=== PATIENT | male | born 1980 | race Hispanic/Latino ===

== ENCOUNTER 2022-09-09 06:56 | Emergency (ER) | payer BC ==
--- OUTSIDE RECORDS SUMMARY | 2022-09-09 07:01 | XMS REPORT | Continuity of Care Document ---
:[address] [facility] t Address [address] [place] [address] Care Team Providers Name Role Phone RUSSEL BAY Primary Care Physician Unavailable KAPIL WALKER Attending Clinician Unavailable PAVITHRA Attending Clinician Unavailable ANDER CAREY Attending Clinician Unavailable Skyla Mills Attending Clinician [phone] RSUSEL BAY Attending Clinician Unavailable KAPIL WALKER Attending Clinician Unavailable PAVITHRA Admitting Clinician Unavailable ANDER CAREY Admitting Clinician Unavailable RUSSEL BAY Admitting Clinician Unavailable KAPIL WALKER Admitting Clinician Unavailable Payers Payer Name Policy Type Policy Number Effective Date Expiration Date S s[place] [id number] 2022 [place] - [place] DIRECT 00:00:00 8 B [id number] GROUP \\T\\ PENSION [id number] 1989 ADMINISTRATORS 00:00:00 2 C [id number] Problems This patient has no known problems. Allergies, Adverse Reactions, Alerts Allergy Allergy Status Severity Reaction(s) Onset Inactive Treating Comm ents Source Name Type Date Date Clinician No known Miscella Active U Not [facility] No known Miscella Active U Not 2021-0 [facility] Spec[facility] 1-14 [facility] All[facility]ie Allergy 08:29: l s 06 ([facility]) No known Miscella Active U Not 202-0 [facility] Specified 10-24 [facility] Allergie Allergy 08:29: l s 06 ([facility]) No known Miscella Active U Not 2021-0 [facility] Specified 10-24 [facility] Allergie Allergy 08:29: l s 06 ([facility]) No known Miscella Active U Not 202-0 [facility] Specified 10-24 [facility] Allergie Allergy 08:29: l s 06 ([facility]) No known Miscella Active U Not 2020-0 [facility] Specified 10-24 [facility] Allergie Allergy 08:29: l s 06 ([facility]) No known Miscella Active U Not 2020-0 [facility] Specified 10-24 [facility] Allergie Allergy 08:29: l s 06 ([facility]) No known Miscella Active U Not 2020-0 [facility] drug [facility]ous Specified 10-24 [facility] Allergie Allergy 08:29: l s 06 ([facility]) No known Miscella Active U Not 2020-0 [facility] Specified 10-24 [facility] Allergie Allergy 08:29: l s 06 ([facility]) No known Miscella Active U Not 2021-0 [facility] drug ne[facility] Specified 10-24 [facility] Allergie Allergy 08:29: l s 06 ([facility]) No known Miscella Active U Not 2020-0 [facility] drug neous Specified 10-24 [facility]osp[facility] Allergie Allergy 08:29: l s 06 ([facility]) No known Miscella Active U Not 2021-0 Baptis [facility] drug neous Specified 10-24 [facility]osp[facility] Allergie Allergy 08:29: l s 06 ([facility]) No known Miscella Active U Not 2021-0 [facility] drug neous Specified 10-24 [facility]osp[facility] Allergie Allergy 08:29: l s 06 ([facility]) No known Miscella Active U Not 2021-0 [facility] drug neous Specified 10-24 [facility]osp[facility] Allergie Allergy 08:29: l s 06 ([facility]) No known Miscella Active U Not [facility] Specified 10-24 [facility] Allergie Allergy 08:29: l s 06 ([facility]) No known Miscella Active U Not [facility] drug neous Specified 10-24 [facility]ospita Allergie Allergy 08:29: l s 06 ([facility]) No known Miscella Active U Not [facility] drug neous Specified 10-24 [facility]ospita Allergie Allergy 08:29: l s 06 ([facility]) No known Miscella Active U Not [facility] drug [facility]ous Specified 10-24 [facility]ospita Allergie Allergy 08:29: l s 06 ([facility]) No known Miscella Active U Not [facility] Specified 10-24 [facility] Allergie Allergy 08:29: l s 06 ([facility]) No known Miscella Active U Not [facility] drug [facility] Specified 10-24 [facility]osp[facility] Allergie Allergy 08:29: l s 06 ([facility]) No known Miscella Active U Not [facility] Specified 07-06 [facility] Allergie Allergy 17:38: l s 26 ([facility]) Social History Smoking Status Start Date Stop Date Source Current Every Day Smoker [facility] Light Tobacco Smoker [facility] Medications Ordered Filled Start Stop Current Ordering Indication Dosage Frequency Signature Comments Components Source Medication Medication Date Date Medication? Clinician (SIG) Name Name padmaja giang No triamcinol [facility] ne ne 4-21 one Medical acetonide acetonide 14:57: acetonide Group 40 mg/mL 40 mg/mL 40 40 mg/mL suspension suspension suspension for for for injectionTa injectionTa injectionT ke 2 mL by ke 2 mL by clary 2 mL injection injection by route. route. injection route. Kenalog 40 Kenalog 40 No Kenalog 40 [place] mg/mL mg/mL 2-10 mg/mL Medical suspension suspension 15:50: suspension Group for for 35 for injectionTa injectionTa injectionT ke 1 mL by ke 1 mL by clary 1 mL injection injection by route. route. injection route. neomycin neomycin No neomycin Jr robbins 3.5 3.5 3.5 Medical mg/g-polymy mg/g-polymy mg/g-polym Group wilmer B wilmer B yxin B 10,000 10,000 10,000 unit/g-dexa unit/g-dexa unit/g-dex meth 0.1 % meth 0.1 % ameth 0.1 eye oint eye oint % eye oint APPLY SMALL APPLY SMALL APPLY AMOUNT TO AMOUNT TO SMALL THE EYELID THE EYELID AMOUNT TO THREE TIMES THREE TIMES THE EYELID DAILY DAILY THREE TIMES DAILY pantoprazol pantoprazol No pantoprazo [facility] e 20 mg e 20 mg le 20 mg Medic al tablet,iqra tablet,iqra tablet,del Group yed release yed release ayed TAKE 1 TAKE 1 release TABLET BY TABLET BY TAKE 1 MOUTH EVERY MOUTH EVERY TABLET BY DAY DAY MOUTH EVERY DAY pantoprazol pantoprazol No pantoprazo [facility] e 40 mg e 40 mg le 40 mg Medic al tablet,iqra tablet,iqra tablet,del Group yed release yed release ayed TAKE 1 TAKE 1 release TABLET BY TABLET BY TAKE 1 MOUTH TWICE MOUTH TWICE TABLET BY DAILY DAILY MOUTH TWICE DAILY prednisolon prednisolon No prednisolo [facility] e acetate 1 e acetate 1 ne acetate Medical % eye % eye 1 % eye Group drops,suspe drops,suspe drops,susp nsion nsion ension INSTILL 1 INSTILL 1 INSTILL 1 DROP INTO DROP INTO DROP INTO BOTH EYES BOTH EYES BOTH EYES FOUR TIMES FOUR TIMES FOUR TIMES A DAY FOR 7 A DAY FOR 7 A DAY FOR DAYS DAYS 7 DAYS triamcinolo triamcinolo No 2mL triamcinol Yenny ne ne one Medical acetonide acetonide acetonide Group 40 mg/mL 40 mg/mL 40 mg/mL suspension suspension suspension for for for injection injection injection Take 2 mL Take 2 mL Take 2 mL by by by injection injection injection route. route. route. azithromyci azithromyci No azithromyc [place] n 250 mg n 250 mg in 250 mg Me dical tablet tablet tablet Group ID NOW ID NOW No ID NOW [place] COVID-19 COVID-19 COVID-19 Med ical Test Kit Test Kit Test Kit [place] up TEST TEST TEST DIRECTED DIRECTED DIRECTED Kenalog 40 Kenalog 40 No 1mL Kenalog 40 [facility] mg/mL mg/mL mg/mL Medical suspension suspension suspension Group for for for injection injection injection Take 1 mL Take 1 mL Take 1 mL by by by injection injection injection route. route. route. methylpredn methylpredn No methylpred [place] isolone 4 isolone 4 nisolone 4 Medical mg tablets mg tablets mg tablets Group in a dose in a dose in a dose pack FOLLOW pack FOLLOW pack PACKAGE PACKAGE FOLLOW DIRECTIONS DIRECTIONS PACKAGE DIRECTIONS Mobic 15 mg Mobic 15 mg No 1 Q1D Mobic 15 [place] tablet Take tablet Take mg tablet Medical 1 tablet 1 tablet Take 1 Group every day every day tablet by oral by oral every day route. route. by oral route. pantoprazol pantoprazol No pantoprazo [place] e 40 mg e 40 mg le 40 mg Medic al tablet,iqra tablet,iqra tablet,del Group yed release yed release ayed TAKE 1 TAKE 1 release TABLET BY TABLET BY TAKE 1 MOUTH TWICE MOUTH TWICE TABLET BY DAILY DAILY MOUTH TWICE DAILY azithromyci azithromyci No azithromyc [facility] n 250 mg n 250 mg in 250 mg Me dical tablet tablet tablet Group ID NOW ID NOW No ID NOW [place] COVID-19 COVID-19 COVID-19 Med ical Test Kit Test Kit Test Kit [place] up TEST TEST TEST DIRECTED DIRECTED DIRECTED latanoprost latanoprost No latanopros [place] 0.005 % eye 0.005 % eye t 0.005 % Medical drops drops eye drops Group INSTILL 1 INSTILL 1 INSTILL 1 DROP IN DROP IN DROP IN BOTH EYES BOTH EYES BOTH EYES EVERY NIGHT EVERY NIGHT EVERY NIGHT meloxicam meloxicam No meloxicam [facility] 15 mg 15 mg 15 mg Medical tablet TAKE tablet TAKE tablet Group 1 TABLET BY 1 TABLET BY TAKE 1 MOUTH EVERY MOUTH EVERY TABLET BY DAY DAY MOUTH EVERY DAY methylpredn methylpredn No methylpred [place] isolone 4 isolone 4 nisolone 4 Medical mg tablets mg tablets mg tablets Group in a dose in a dose in a dose pack FOLLOW pack FOLLOW pack PACKAGE PACKAGE FOLLOW DIRECTIONS DIRECTIONS PACKAGE DIRECTIONS neomycin neomycin No neomycin Jr robbins 3.5 3.5 3.5 Medical mg/g-polymy mg/g-polymy mg/g-polym Group wilmer B wilmer B yxin B 10,000 10,000 10,000 unit/g-dexa unit/g-dexa unit/g-dex meth 0.1 % meth 0.1 % ameth 0.1 eye oint eye oint % eye oint APPLY SMALL APPLY SMALL APPLY AMOUNT TO AMOUNT TO SMALL THE EYELID THE EYELID AMOUNT TO THREE TIMES THREE TIMES THE EYELID DAILY DAILY THREE TIMES DAILY pantoprazol pantoprazol No pantoprazo [place] e 20 mg e 20 mg le 20 mg Medic al tablet,iqra tablet,iqra tablet,del Group yed release yed release ayed TAKE 1 TAKE 1 release TABLET BY TABLET BY TAKE 1 MOUTH EVERY MOUTH EVERY TABLET BY DAY DAY MOUTH EVERY DAY pantoprazol pantoprazol No pantoprazo [place] e 40 mg e 40 mg le 40 mg Medic al tablet,iqra tablet,iqra tablet,del Group yed release yed release ayed TAKE 1 TAKE 1 release TABLET BY TABLET BY TAKE 1 MOUTH TWICE MOUTH TWICE TABLET BY DAILY DAILY MOUTH TWICE DAILY triamcinolo triamcinolo No 2mL triamcinol [place] ne ne one Medical acetonide acetonide acetonide Group 40 mg/mL 40 mg/mL 40 mg/mL suspension suspension suspension for for for injection injection injection Take 2 mL Take 2 mL Take 2 mL by by by injection injection injection route. route. route. dextroamphe dextroamphe No dextroamph [place] tamine-amph tamine-amph etamine-am Medical etamine 10 etamine 10 phetamine Group mg tablet mg tablet 10 mg TAKE 1 TAKE 1 tablet TABLET BY TABLET BY TAKE 1 MOUTH EVERY MOUTH EVERY TABLET BY MORNING MORNING MOUTH EVERY MORNING dextroamphe dextroamphe No dextroamph [facility] tamine-amph tamine-amph etamine-am Medical etamine 20 etamine 20 phetamine Group mg tablet mg tablet 20 mg TAKE 1 TAKE 1 tablet TABLET BY TABLET BY TAKE 1 MOUTH EVERY MOUTH EVERY TABLET BY DAY DAY MOUTH EVERY DAY latanoprost latanoprost No latanopros [place] 0.005 % eye 0.005 % eye t 0.005 % Medical drops drops eye drops Group INSTILL 1 INSTILL 1 INSTILL 1 DROP IN DROP IN DROP IN BOTH EYES BOTH EYES BOTH EYES EVERY NIGHT EVERY NIGHT EVERY NIGHT meloxicam meloxicam No meloxicam [place] 15 mg 15 mg 15 mg Medical tablet TAKE tablet TAKE tablet Group 1 TABLET BY 1 TABLET BY TAKE 1 MOUTH EVERY MOUTH EVERY TABLET BY DAY DAY MOUTH EVERY DAY neomycin neomycin No neomycin Jr robbins 3.5 3.5 3.5 Medical mg/g-polymy mg/g-polymy mg/g-polym Group wilmer B wilmer B yxin B 10,000 10,000 10,000 unit/g-dexa unit/g-dexa unit/g-dex meth 0.1 % meth 0.1 % ameth 0.1 eye oint eye oint % eye oint APPLY SMALL APPLY SMALL APPLY AMOUNT TO AMOUNT TO SMALL THE EYELID THE EYELID AMOUNT TO THREE TIMES THREE TIMES THE EYELID DAILY DAILY THREE TIMES DAILY pantoprazol pantoprazol No pantoprazo [facility] e 20 mg e 20 mg le 20 mg Medic al tablet,iqra tablet,iqra tablet,del Group yed release yed release ayed TAKE 1 TAKE 1 release TABLET BY TABLET BY TAKE 1 MOUTH EVERY MOUTH EVERY TABLET BY DAY DAY MOUTH EVERY DAY pantoprazol pantoprazol No pantoprazo [facility] e 40 mg e 40 mg le 40 mg Medic al tablet,iqra tablet,iqra tablet,del Group yed release yed release ayed TAKE 1 TAKE 1 release TABLET BY TABLET BY TAKE 1 MOUTH TWICE MOUTH TWICE TABLET BY DAILY DAILY MOUTH TWICE DAILY triamcinolo triamcinolo No 2mL triamcinol [place] ne ne one Medical acetonide acetonide acetonide Group 40 mg/mL 40 mg/mL 40 mg/mL suspension suspension suspension for for for injection injection injection Take 2 mL Take 2 mL Take 2 mL by by by injection injection injection route. route. route. alprazolam alprazolam No alprazolam [facility] 0.5 mg 0.5 mg 0.5 mg Medical tablet tablet tablet Group INSTRUCTION INSTRUCTION INSTRUCTIO S WILL BE S WILL BE NS WILL BE GIVEN AT GIVEN AT GIVEN AT OFFICE OFFICE OFFICE dextroamphe dextroamphe No dextroamph [place] tamine-amph tamine-amph etamine-am Medical etamine 10 etamine 10 phetamine Group mg tablet mg tablet 10 mg TAKE 1 TAKE 1 tablet TABLET BY TABLET BY TAKE 1 MOUTH EVERY MOUTH EVERY TABLET BY MORNING MORNING MOUTH EVERY MORNING dextroamphe dextroamphe No dextroamph [facility] tamine-amph tamine-amph etamine-am Medical etamine 20 etamine 20 phetamine Group mg tablet mg tablet 20 mg TAKE 1 TAKE 1 tablet TABLET BY TABLET BY TAKE 1 MOUTH EVERY MOUTH EVERY TABLET BY DAY DAY MOUTH EVERY DAY gatifloxaci gatifloxaci No gatifloxac Y[facility] n 0.5 % eye n 0.5 % eye in 0.5 % Medical drops drops eye drops Group INSTILL 1 INSTILL 1 INSTILL 1 DROP INTO DROP INTO DROP INTO BOTH EYES BOTH EYES BOTH EYES FOUR TIMES FOUR TIMES FOUR TIMES A DAY FOR 7 A DAY FOR 7 A DAY FOR DAYS DAYS 7 DAYS latanoprost latanoprost No latanopros [place] 0.005 % eye 0.005 % eye t 0.005 % Medical drops drops eye drops Group INSTILL 1 INSTILL 1 INSTILL 1 DROP IN DROP IN DROP IN BOTH EYES BOTH EYES BOTH EYES EVERY NIGHT EVERY NIGHT EVERY NIGHT meloxicam meloxicam No meloxicam [place] 15 mg 15 mg 15 mg Medical tablet TAKE tablet TAKE tablet Group 1 TABLET BY 1 TABLET BY TAKE 1 MOUTH EVERY MOUTH EVERY TABLET BY DAY DAY MOUTH EVERY DAY pantoprazol pantoprazol No pantoprazo [facility] as e as le as st directed directed directed Dallin as [facility] tracey Vital Signs Vital Name Observation Time Observation Value Comments Source BP Diastolic 2022-08-26 84 mm[Hg] [facility] 00:00:00 Height 2022-08-26 70 [in_i] [facility] 00:00:00 BMI (Body Mass 2022-08-26 40.2 kg/m2 [place] [facility] Index) 00:00:00 BP Systolic 2022-08-26 136 mm[Hg] [facility] 00:00:00 Body Weight 2022-08-26 280 [lb_av] [facility] 00:00:00 BP Diastolic 2022-05-07 126 mm[Hg] [facility] 00:00:00 Height 2022-05-07 70 [in_i] [facility] 00:00:00 BP Systolic 2022-05-07 182 mm[Hg] [facility] 00:00:00 BP Diastolic 2022-01-29 83 mm[Hg] [facility] 00:00:00 Height 2022-01-29 70 [in_i] [facility] 00:00:00 BMI (Body Mass 2022-01-29 38.3 kg/m2 [facility] Index) 00:00:00 BP Systolic 2022-01-29 128 mm[Hg] [facility] 00:00:00 Body Weight 2022-01-29 267 [lb_av] [facility] 00:00:00 BP Diastolic 2021-11-20 83 mm[Hg] [facility] 00:00:00 Height 2021-11-20 70 [in_i] [facility] 00:00:00 BMI (Body Mass 2021-11-20 38.3 kg/m2 [facility] Index) 00:00:00 BP Systolic 2021-11-20 143 mm[Hg] [facility] 00:00:00 Body Weight 2021-11-20 267 [lb_av] [facility] 00:00:00 BP Diastolic 2018-12-08 85 mm[Hg] [facility] 00:00:00 [facility] Height 2018-12-08 70 [in_i] [facility] 00:00:00 [facility] BMI (Body Mass 2018-12-08 42 kg/m2 [facility] as Index) 00:00:00 [facility] BP Systolic 2018-12-08 141 mm[Hg] [facility] 00:00:00 [facility] Body Weight 2018-12-08 293 [lb_av] [facility] 00:00:00 [facility] Procedures Procedure Date / Time Performing Clinician Source Performed XR, shoulder, 2 or 2021-11-11 00:00:00 [facility] more view XR, elbow, 3 or more 2021-11-11 00:00:00 [facility] view US, abdomen, 2018-12-08 00:00:00 [facility] [place] [facility] Other [facility] Plan of Care Planned Activity Planned Date Details Comments Source Instructions [facility] Encounters Start End Encounter Admission Attending Care Care Encounter Source Date/Time Date/Time Type Type Clinicians Facility Department ID 2021-08-01 Outpatient JONATHAN CASTILLO [id number] [facility] 17:17:[id number] [place] [address] 2019-12-07 Inpatient JONATHAN PHILLIPS [id number] [facility] 11:16:[address] 2022-08-27 2022-08-27 Out[place] [facility] [place] [id number] [facility] 00:00:00 00:00:00 TATIANA [id number] [facility] 2022-08-26 2022-08-26 Outpatient NETO [facility] [place] [id number] [facility] 00:00:00 00:00:00 TATIANA [id number] Medica l Group 2022-08-26 2022-08-26 Skyla [place]OL[place]AN [place] [facility] [place] [id number] Yenny 00:00:00 00:00:00 MD Gene: Silvestre caldwell [address] and [address], [facility] [address] , Ph. 2022-06-26 2022-06-26 Outpatient ROMAN CATHOLIC [id number] 01:00:00 01:00:00 [facility] [id number] [facility] [id number] 2022-06-25 2022-06-25 Outpatient 3 TRINITY CAREY [facility] [id number] Sikhism 20:00:00 20:00:00 ANDER sunshine ([facility]) 2022-05-26 2022-05-26 Outpatient BANKS_KRIST [facility] [place] [id number] [facility] 00:00:00 00:00:00 TATIANA [id number] Medica l Group 2022-05-10 2022-05-10 Outpatient BANKS_KRIST [facility] [place] 540 [id number] Yenny 00:00:00 00:00:00 TATIANA [id number] Medica l Group 2022-05-07 2022-05-07 Outpatient BANKS_KRIST [facility] [place] 540 [id number] Yenny 00:00:00 00:00:00 TATIANA [address] Medica l Group 2022-05-07 2022-05-07 [facility] [id number] 00:00:00 00:00:00 Skyla Musa [id number] 1023-07-28 2022-05-07 Skyla [place] [facility] [place] Yenny 00:00:00 00:00:00 MD Gene: Silvestre caldwell [address], a[address] and [address], [facility], [facility] [address] , Ph. 2022-04-28 2022-04-28 Outpatient BANKS_KRIST [facility] 540 [facility]enny 02:51:00 02:51:00 TATIANA [id number] Medica l Group 2022-04-21 2022-04-21 Outpatient ROMAN CATHOLIC [id number] 01:00:00 01:00:00 [facility] JONATHAN [id number] [facility] [id number] 2022-04-20 2022-04-20 Outpatient 3 TRINITY CAREY [facility] [id number] Sikhism 20:00:00 20:00:00 [facility]ER [facility] ([facility]) 2022-03-31 2022-03-31 Outpatient BANKS_KRIST [facility] 540 Yenny 07:11:00 07:11:00 TATIANA [facility] 2022-01-30 2022-01-30 Outpatient BANKS_KRIST [facility] 540 Yenny 10:38:00 10:38:00 [facility] 2022-01-29 2022-01-29 Outpatient BANKS[facility]KRIST [facility] 540 Yenny 03:14:00 03:14:00 [facility] 2022-01-29 2022-01-29 Outpatient SUSI Mills [facility] [place] [id number] 00:00:00 00:00:00 Skyla Musa [id number] 2022-01-29 2022-01-29 Skyla Musa [facility] [place] [facility] [place] 00:00:00 00:00:00 MD Gene: [facility] ica [address]/VITALIY/[address], a[address] and [address], [facility] [place], [place]A Pate [address] , Ph. 2022-01-17 2022-01-17 Outpatient BANKS_KRIST [facility] 540 Yenny 01:42:00 01:42:00 T[facility]NA [facility] 2021-11-27 2021-11-27 Outpatient BANKS[facility]KRIST [facility] 540 Yenny 11:39:00 11:39:00 [facility]NA [facility] 2021-11-25 2021-11-25 Outpatient BANKS_KRIST [facility] [place] 540 [place] 03:11:00 03:11:00 [facility]NA [facility] 2021-11-21 2021-11-21 Outpatient [facility] 540 [place] 09:10:00 09:10:00 [facility] 2021-11-20 2021-11-20 Outpatient [facility] 540 Yenny 04:49:00 04:49:00 [facility] 2021-11-20 2021-11-20 Outpatient Gene [facility] [place] [id number] 00:00:00 00:00:00 Skyla Musa [id number] 2021-11-20 2021-11-20 Skyla Musa [facility] [place] - [facility] 00:00:00 00:00:00 MD Gene: [facility] ical [address] [place] - [place] [address] [address], a[address] and [address], [facility] [address] , Ph. 2021-11-11 2021-11-11 Outpatient BANKS_KRIST [facility] [place] 10:15:00 10:15:00 [facility]NA [facility] 2021-10-16 2021-10-16 Outpatient 3 TRINITY BAY OPI [id number] [facility] 11:29:13 11:29:13 [facility] 2019-12-07 2019-12-07 Outpatient JONATHAN WALKER [id number] [facility] 12:41:00 12:41:[address] 2019-11-24 2019-11-24 Outpatient JONATHAN PHILLIPS [id number] [facility] 10:05:00 11:25:[address] 2019-10-19 2019-10-19 Outpatient JONATHAN PHILLIPS [id number] [facility] 06:06:00 07:53:00 [facility] 12 [facility] 2019-09-21 2019-09-21 Outpatient JONATHAN PHILLIPS [id number] [facility] 06:30:00 08:20:00 [facility] 2018-12-08 2018-12-08 Ruben DAMIAN [place] - [id number] [place] 00:00:00 00:00:00 [facility] [address] [facility], DO: [address] [facility], OFFICE gy [address], [facility] [place], [place] [address] , Ph. Results Test Description Test Time Test Comments Results Result Comments Source WHOLE BLOOD GLUCOSE 2019-07-06 17:15:00 Test Item Value Reference Range Interpretation Comme nts WHOLE BLOOD GLUCOSE (test 148 MG/DL 70-99 Fasting glucose normal <100 MG/DL- code = POC GLU) [facility] recommendation* * [id number] 16:52:00 Test Item Value Reference Range Interpretation Comments GLUCOSE (test code = URGLU) 250 MG/DL NEG-100 BILIRUBN (test code = URBILI) NEGATIVE NEGATIVE KETONE (test code = URKET) NEGATIVE MG/DL NEGATIVE BLOOD (test code = URBLD) NEGATIVE UR PH (test code = URPH) 6.0 5.0-7.5 PROTEIN (test code = URPRO) NEGATIVE MG/DL NEGATIVE NITRITES (test code = URNIT) NEGATIVE NEGATIVE UROBILINGEN (test code = 1.0 EU/DL 0.2-1.0 URURO) LEUKOCYT (test code = URLEU) NEGATIVE NEGATIVE UA COLOR (test code = UA YELLOW YELLOW COLOR) CLARITY (test code = CLARITY) CLEAR CLEAR SP GRAV (test code = URSPGRAV) 1.020 1.000-1.025 UAMICRO (test code = UAMICRO) NO [id number] 13:04:00 Test Item Value Reference Range Interpretation Comments WBC (test code = 5.5 K/UL 3.5-10.9 WBC) RBC (test code = 5.13 M/UL 4.3-5.7 RBC) HGB (test code = 15.5 G/DL 13.0-17.9 HGB) HCT (test code = 45.2 % 38-52 HCT) MCV (test code = 88.1 FL 80-98 MCV) MCH (test code = 30.2 PG 28-32 MCH) MCHC (test code = 34.3 G/DL 32.5-36.5 MCHC) RDW (test code = 12.1 % 11.5-14.5 RDW) PLT (test code = 238 K/UL 150-450 PLT) MPV (test code = 10.0 FL 7.4-10.4 MPV) MANDIFF (test code = NO MANDIFF) SCAN (test code = NO SCAN) NEUT% (test code = 41.0 % 40-75 NEUT%) LYMPH% (test code = 46.5 % 24-44 H LYMPH%) MONO% (test code = 7.4 % 0-13 MONO%) EOS% (test code = 4.3 % 0-4 H EOS%) BASO % (test code = 0.4 % 0-2 BASO%) IG% (test code = 0.4 % 0-1 IG% = Metam yelocytes, IG%) Myelocytes, and Promyelocytes. (Immature neutr ophils not including " bands".) > 3% IG indic ates risk of sepsis NRBC% (test code = 0 /100 WBC NRBC%) ABS NEUT (test code 2.3 K/UL 1.2-7.2 = NEUT) HEPATITIS C ANTIBODY [id number] 12:06:00 Test Item Value Reference Range Interpretation Comments SCRN HCV (test code NEGATIVE NEGATIVE Hepatiti s C Antibody test = SCRN HCV) is for screenin g purposes only. All react geovanna will be confirmed by additional test ing. ER SCREEN FOR HIV 12:06:00 Test Item Value Reference Range Interpretation Comments HIV 1/2 AB (test NONREACTIVE NONREACTIVE This test i s used for code = SCRN HIV) SCREENING p urposes only. All reactive re sults are prelimenary and confirmation re sults will follow. PROBRAIN NATRIURETIC [id number] 10:56:00 Test Item Value Reference Range Interpretation Comments NT-PROBNP (test code 37 pg/mL Exclusi on for heart = PROBNP) failure for pat ients of all ages is 300 pg/mL. Inclusion for h eart failure for pat ients age <50 is 450 pg/m L; for patients age 50 -75 is 900 pg/mL; for reg ents age >75 is 1800 pg/ mL. [id number] 10:56:00 Test Item Value Reference Range Interpretation Comments %CKMB (test code = %MB) 0.5 % CKMB (test code = CKMB) 0.5 NG/ML 0.22-2.4 CK (test code = CK) 96 U/L 55-170 CKINTERP (test code = NEGATIVE Negative CKINTERP) PROTHROMBIN TIME WITH [id number] 10:56:00 Test Item Value Reference Range Interpretation Comments PROTHROMBIN TIME 12.6 SECONDS 12.0-14.6 INR Usual R killian = 2 (test code = PT) to 3 for pr evention of deep vein thrombosis (DVT ) INR (test code = INR) 0.9 [id number] 10:56:00 Test Item Value Reference Range Interpretation Comments PTT (test code = 26.9 SECONDS 24.4-36.3 HEPARIN THE RAPEUTIC PTT) RANGE 57-92 SEC ONDS TROPONIN [id number] 10:26:00 Test Item Value Reference Range Interpretation Comments TROPER (test code = 0.00 ng/ml 0.0-0.08 INTE RPRETIVE TROPER) DATA A POC T ROPONIN OF </= 0.08 NG/ ML IS CONSIDERED NEGA TIVE CHEST 1 VIEW [id number] 10:23:[address] [id number] IMAGING REPORTPatient Name: FERMIN [place] of Service: [id number]: [id number] Sex: M Order #: [id number] [facility] 1980 [facility] Number: [id number] Record Number: [id number] Hospital Number: [id number] Physician: Joselyn ESCOTOing Physician: Aleena ESCOTO.10:10 AMHistory: Chest pain.Technique: Single AP chest projection.Findings: Single chest projection demonstrates normal heart size and clearlungs. No infiltrates or abnormalities are depicted. The osseous structuresappear intact.Impression:No acute-appearing cardiopulmonary abnormalities.Electronically Signed By: Omer Copeland M.D., 02/24/2018 10:21 AMLegally authenticated by MIN Fisher 2018-02-24 10:21:05FOOT 3 VIEWS 2018-02-24 10:23:[address] [id number] IMAGING REPORTPatient Name: FERMIN [place] of Service: [id number]: 38 Sex: M Order #: [id number] Room: ERB: 1980 X-Ray Number: [id number] Record Number: [id number] Hospital Number: [id number] Physician: AMOS ESCOTOOrdering Physician: Aureliano ESCOTO foot.History: Foot pain.Technique: 3 views of the right foot were reviewed.Findings:There is no fracture, dislocation or bony malalignment. The visualizedankle joint appears intact. The soft tissues appear normal.Impression:No specific acute appearing right foot abnormalities.Electronically Signed By: Omer Copeland M.D., 02/24/2018 10:21 AMLegally authenticated by MIN Fisher 2018-02-24 10:21:27WHOLE BLOOD [id number] 09:40:00 Test Item Value Reference Range Interpretation Comments WHOLE BLOOD GLUCOSE 82 mg/dL 70-99 Fastin g glucose (test code = POC GLU) normal <100 MG/DL- [employer] recommendation* *
[2022-09-09] MEDS ORDERED: KETOROLAC 30 MG/ML INJ ONE (07:42)
[2022-09-09] MEDS ORDERED: ONDANSETRON 4 MG/2 ML VIAL ONE (07:42)
[2022-09-09] MEDS ORDERED: ONDANSETRON 4 MG (ODT) TAB ONE (07:45)
--- NOTE | 2022-09-09 08:45 | RAD REPORT ---
EXAM DESCRIPTION: Kelly Single View09/09/2022 8:36 am CLINICAL HISTORY: Chest pain COMPARISON: none FINDINGS: The lungs appear clear of acute infiltrate. The heart is normal size IMPRESSION: No acute abnormalities displayed
--- NOTE | 2022-09-09 08:54 | ER ---
Nurse's Notes [facility] Name: Harvey Lewis Age: 42 yrs Sex: Male : 1980 Arrival Date: 09/09/2022 Time: 07:02 Bed 14 Private MD: Diagnosis: Acute viral syndrome;Flu-like symptoms Presentation: 09/09 07:18 Chief complaint: Patient states: N/V/D, body aches, fever for 2 days. Had to leave work ll1 this morning. Coronavirus screen: Vaccine status: Patient reports receiving the 2nd dose of the covid vaccine. Client denies travel out of the [place] in the last 14 days. diarrhea, fatigue, fever, headache, muscle pain, nausea, vomiting. Client presents with at least one sign or symptom that may indicate coronavirus-19. Standard/surgical mask placed on the client. Ebola Screen: Patient denies travel to an Ebola-affected area in the 21 days before illness onset. Initial Sepsis Screen: Does the patient meet any 2 criteria? HR > 90 bpm. Does the patient have a suspected source of infection? Yes: Acute abdominal pain. Risk Assessment: Do you want to hurt yourself or someone else? Patient reports no desire to harm self or others. Onset of symptoms was September 08, 2022. 07:18 Method Of Arrival: Ambulatory 1 07:18 Acuity: NGUYỄN 3 ll1 Triage Assessment: 07:20 General: Appears uncomfortable, ill, Behavior is cooperative, appropriate for age. ll1 General: fever 101 at home. Pain: Complains of pain in body Pain currently is 10 out of 10 on a pain scale. Quality of pain is described as aching, Pain began 1 day ago. GI: Abdomen is round Reports cramping, diarrhea, nausea, vomiting. Musculoskeletal: Reports pain in body aches. Historical: - Allergies: 07:18 No Known Allergies; ll1 - PMHx: 07:18 None; ll1 - PSHx: 07:18 gastric sleeve; Cholecystectomy; ll1 - Immunization history:: Client reports receiving the 2nd dose of the Covid vaccine. - Social history:: Smoking status: Patient reports the use of cigarette tobacco products, denies chronic smoking, but will smoke occasionally. Screenin:55 Abuse screen: Denies threats or abuse. Denies injuries from another. Nutritional db screening: No deficits noted. Tuberculosis screening: No symptoms or risk factors identified. Fall Risk None identified. No fall in past 12 months (0 pts). No secondary diagnosis (0 pts). No IV (0 pts). Ambulatory Aid- None/Bed Rest/Nurse Assist (0 pts). Gait- Normal/Bed Rest/Wheelchair (0 pts) Mental Status- Oriented to own ability (0 pts). Total Austin Fall Scale indicates No Risk (0-24 pts). Assessment: 07:40 Reassessment: Patient appears in no apparent distress at this time. Patient is alert, db oriented x 3, equal unlabored respirations, skin warm/dry/pink. nausea and body aches with fever started yesterday. General: Appears in no apparent distress. Behavior is calm, cooperative, appropriate for age. Pain: Complains of pain in all over body. Neuro: Level of Consciousness is awake, alert, obeys commands, Oriented to person, place, time, situation, Appropriate for age. Cardiovascular: No deficits noted. Respiratory: Reports cough that is congestion. GI: Reports nausea, Patient currently denies diarrhea, vomiting. GI: Abdomen is flat, non-distended, Abd is soft and non tender X 4 quads. Vital Signs: 07:18 BP 154 / 94; Pulse 103; Resp 18; Temp 99.2; Pulse Ox 99% ; Weight 127.01 kg; Height 5 ll1 ft. 10 in. (177.80 cm); Pain 10/10; 09:00 BP 127 / 69; Pulse 101; Resp 18; Temp 99.9(O); Pulse Ox 99% on R/A; db 07:18 Body Mass Index 40.18 (127.01 kg, 177.80 cm) ll1 ED Course: 07:02 Patient arrived in ED. bp1 07:08 Denise Cedeño MD is Attending Physician. sd2 07:18 Arm band placed on Patient placed in an exam room, on a stretcher. ll1 07:20 Triage completed. ll1 07:28 Frances Hatch, MILIND is Primary Nurse. db 08:25 EKG done, by ED staff, reviewed by Denise Cedeño MD. em1 08:38 XRAY Chest (1 view) In Process Unspecified. EDMS 09:00 Bed in low position. Side rails up X 1. Pulse ox on. NIBP on. Warm blanket given. db 09:00 No provider procedures requiring assistance completed. Patient did not have IV access db during this emergency room visit. Administered Medications: 07:45 Drug: Ondansetron 8 mg Route: PO; db 09:27 Follow up: Response: No adverse reaction db 07:53 Drug: Ketorolac 60 mg Route: IM; Site: right deltoid; db 09:27 Follow up: Response: No adverse reaction db Medication: 09:00 VIS not applicable for this client. db Outcome: 08:53 Discharge ordered by . kuldip 09:00 Discharged to home ambulatory. db 09:00 Condition: stable 09:00 Discharge instructions given to patient, significant other, Instructed on discharge instructions, follow up and referral plans. Demonstrated understanding of instructions, follow-up care, Prescriptions given X 1. 09:28 Patient left the ED. db Signatures: Dispatcher [employer] EDMS Kirill Smith em1 Katie Lopez, MILIND RN ll1 Lucie Lucas Stephanie, MD MD sd2 Frances Hatch, RN RN db
--- NOTE | 2022-09-09 08:54 | EDPHYS ---
Physician Documentation [facility] Name: Harvey Lewis Age: 42 yrs Sex: Male : 1980 Arrival Date: 09/09/2022 Time: 07:02 Bed 14 Private MD: ED Physician Denise Cedeño HPI: 09/09 07:23 This 42 yrs old Male presents to ER via Ambulatory with complaints of Fever, sd2 Nausea, Diarrhea. 07:23 42 yo M presents with CC of fever, nausea and diarrhea ongoing since yesterday. Reports sd2 taking Advil at home with some relief. Tested for COVID and flu yesterday at clinic and was negative. Denies any known sick contacts. States burning sensation in chest at times but denies cough. Has a history of heartburn he is on medication for. Denies prior cardiac history. . Historical: - Allergies: 07:18 No Known Allergies; ll1 - PMHx: 07:18 None; ll1 - PSHx: 07:18 gastric sleeve; Cholecystectomy; ll1 - Immunization history:: Client reports receiving the 2nd dose of the Covid vaccine. - Social history:: Smoking status: Patient reports the use of cigarette tobacco products, denies chronic smoking, but will smoke occasionally. ROS: 07:23 Eyes: Negative for injury, pain, redness, and discharge. sd2 07:23 Respiratory: Negative for shortness of breath, cough, wheezing. 07:23 MS/Extremity: Negative for injury and deformity, Skin: Negative for injury, rash, and discoloration, Neuro: Negative for headache, numbness and tingling. 07:23 Constitutional: Positive for body aches, chills, fever, Negative for weight loss. 07:23 Cardiovascular: Positive for chest pain, Negative for orthopnea, palpitations. 07:23 Abdomen/GI: Positive for nausea, diarrhea, Negative for abdominal pain, vomiting. Exam: 07:23 Constitutional: This is a well developed, well nourished patient who is awake, alert, sd2 and in no acute distress. Head/Face: Normocephalic, atraumatic. Eyes: EOMI, normal conjunctiva bilaterally Chest/axilla: Normal chest wall appearance and motion. Nontender with no deformity. Cardiovascular: Regular rate and rhythm with a normal S1 and S2. No gallops, murmurs, or rubs. 2+ distal pulses. Respiratory: Lungs have equal breath sounds bilaterally, clear to auscultation and percussion. No rales, rhonchi or wheezes noted. No increased work of breathing, no retractions or nasal flaring. Abdomen/GI: Soft, non-tender, with normal bowel sounds. No guarding or rebound. No evidence of tenderness throughout. Skin: Warm, dry with normal turgor. Normal color with no rashes, no lesions, and no evidence of cellulitis. MS/ Extremity: Pulses equal, no cyanosis. Neurovascular intact. Full, normal range of motion. Ambulatory without difficulty. Psych: Awake, alert, with orientation to person, place and time. Behavior, mood, and affect are within normal limits. 08:04 ECG was reviewed by the Attending Physician. Sinus tachycardia, rate 105, no STEMI sd2 criteria Vital Signs: 07:18 BP 154 / 94; Pulse 103; Resp 18; Temp 99.2; Pulse Ox 99% ; Weight 127.01 kg; Height 5 ll1 ft. 10 in. (177.80 cm); Pain 10/10; 09:00 BP 127 / 69; Pulse 101; Resp 18; Temp 99.9(O); Pulse Ox 99% on R/A; db 07:18 Body Mass Index 40.18 (127.01 kg, 177.80 cm) ll1 MDM: 07:16 Patient medically screened. sd2 07:23 Differential diagnosis: Differential diagnosis includes but is not limited to: Viral sd2 URI, acute otitis media, acute otitis externa, pneumonia, UTI, COVID, flu, herpangina among others. Data reviewed: vital signs, nurses notes. 08:52 Counseling: I had a detailed discussion with the patient and/or guardian regarding: the sd2 historical points, exam findings, and any diagnostic results supporting the discharge/admit diagnosis, lab results, radiology results, the need for outpatient follow up, to return to the emergency department if symptoms worsen or persist or if there are any questions or concerns that arise at home. Medical screen evaluation completed. EMTALA emergency medical condition absent. ED course: Labs and imaging reviewed. Viral testing negative. CXR with no acute process. EKG with no ischemic changes. Pt feeling improved after treatment. Advised of continued supportive care for home and need for outpatient follow up. Pt verbalizes understanding of discharge plan and strict return precautions. . 09/09 07:23 Order name: SARS-COV-2 RT PCR; Complete Time: 08:48 sd2 09/09 07:23 Order name: Influenza Screen (a \T\ B); Complete Time: 08:29 sd2 09/09 07:23 Order name: XRAY Chest (1 view); Complete Time: 08:48 sd2 09/09 07:23 Order name: EKG - Nurse/Tech; Complete Time: 08:25 sd2 Administered Medications: 07:45 Drug: Ondansetron 8 mg Route: PO; db 09:27 Follow up: Response: No adverse reaction db 07:53 Drug: Ketorolac 60 mg Route: IM; Site: right deltoid; db 09:27 Follow up: Response: No adverse reaction db Disposition Summary: 09/09/22 08:53 Discharge Ordered Location: Home sd2 Problem: new sd2 Symptoms: have improved sd2 Condition: Stable sd2 Diagnosis - Acute viral syndrome sd2 - Flu-like symptoms sd2 Followup: sd2 - With: Private Physician - When: 2 - 3 days - Reason: Recheck today's complaints, Continuance of care, Re-evaluation by your physician Discharge Instructions: - Discharge Summary Sheet sd2 - Viral Illness, Adult sd2 Forms: - Medication Reconciliation Form sd2 - Thank You Letter sd2 - Antibiotic Education sd2 - Prescription Opioid Use sd2 - Work release form db Prescriptions: - ondansetron 8 mg Oral tablet,disintegrating - take 1 tablet by ORAL route every 8 hours As needed; 15 tablet; Refills: 0, sd2 Product Selection Permitted Signatures: Dispatcher [employer] Katie Alcantara, RN RN 1 Denise Cedeño MD MD sd2 Frances Hatch, RN RN db
[2022-09-09 09:32] VITALS: O2SAT 99
[2022-09-09 09:33] VITALS: BP 127/69; TEMP 99.9
--- NOTE | 2022-09-10 13:24 | EKG ---
Test Date: 2022-09-09 Test Time: 08:00:47 Clerk Travel Reservations: YARI MEASUREMENT RESULTS: Intervals: Rate: 105 LA: 148 QRSD: 88 QT: 322 QTc: 425 [place]: P: 1 LA: 148 QRS: -31 T: 5 INTERPRETIVE STATEMENTS: Sinus tachycardia Left axis deviation Pulmonary disease pattern Abnormal ECG No previous ECG available for comparison Electronically Signed On 09-10-22 13:22:44 HEAD BANQUET WAITER/WAITRESS by Marc Flor
== END 2022-09-09 09:28 | disposition home or self-care (01) ==
LOC: ER 06:56
DX: B34.9 Viral infection, unspecified (principal); F17.210 Nicotine dependence, cigarettes, uncomplicated; Z20.822 Contact with and (suspected) exposure to COVID-19
CPT/HCPCS: 93005; 87804 ×2; 71045; 96372; 99284; U0003; Q0162; J2405

== ENCOUNTER 2023-01-01 09:09 | Emergency (ER) | payer BC ==
--- OUTSIDE RECORDS SUMMARY | 2023-01-01 09:15 | XMS REPORT | Continuity of Care Document ---
:[address] [facility] t Address [address] [place] [address] Care Team Providers Name Role Phone RUSSEL BAY Primary Care Physician Unavailable KAPIL WALKER Attending Clinician Unavailable PAVITHRA Attending Clinician Unavailable Skyla Piper Attending Clinician Unavailab ANDER Lepe Attending Clinician Unavailable Skyla Mills Attending Clinician [phone] RUSSEL BAY Attending Clinician Unavailable KAPIL WALKER Attending Clinician Unavailable PAVITHRA Admitting Clinician Unavailable ANDER CAREY Admitting Clinician Unavailable RUSSEL BAY Admitting Clinician Unavailable KAPIL WALKER Admitting Clinician Unavailable Payers Payer Name Policy Type Policy Number Effective Date Expiration Date S sancho [place] [id number] 2022 [place] DIRECT 00:00:00 8 B [id number] GROUP \\T\\ PENSION [id number] 1989 ADMINISTRATORS 00:00:00 2 C [id number] Problems This patient has no known problems. Allergies, Adverse Reactions, Alerts Allergy Allergy Status Severity Reaction(s) Onset Inactive Treating Comm ents Source Name Type Date Date Clinician No Known DA Active U 2021-10 [facility] 2-21 Allergie 00:00: s 00 No Known DA Active U 2021-10 [facility] Drug 2- Allergie 00:00: s 00 No known Miscella Active U Not 2020- [facility] 08:29: l s 06 ([facility]) No known Miscella Active U Not 2020-0 [facility] Specified 10-24 [facility] Allergie Allergy 08:29: l s 06 ([facility]) No known Miscella Active U Not 2020-0 [facility] Specified 10-24 [facility] Allergie Allergy 08:29: l s 06 ([facility]) No known Miscella Active U Not 2020- [facility] Specified 10-24 [facility] Allergie Allergy 08:29: l s 06 ([facility]) No known Miscella Active U Not 2020-0 [facility] Specified 10-24 [facility] Allergie Allergy 08:29: l s 06 ([facility]) No known Miscella Active U Not 2020-0 [facility] Specified 10-24 [facility] Allergie Allergy 08:29: l s 06 ([facility]) No known Miscella Active U Not 2020-0 [facility] Specified 10-24 [facility] Allergie Allergy 08:29: l s 06 ([facility]) No known Miscella Active U Not 2020-0 [facility] Specified 10-24 [facility] Allergie Allergy 08:29: l s 06 ([facility]) No known Miscella Active U Not 2020-0 [facility] Specified 10-24 [facility] Allergie Allergy 08:29: l s 06 ([facility]) No known Miscella Active U Not 2020-0 [facility] Specified 10-24 [facility] Allergie Allergy 08:29: l s 06 ([facility]) No known Miscella Active U Not 2020-0 [facility] Specified 10-24 [facility] Allergie Allergy 08:29: l s 06 ([facility]) No known Miscella Active U Not 202-0 [facility] Specified 10-24 [facility] Allergie Allergy 08:29: l s 06 ([facility]) No known Miscella Active U Not [facility] Specified 10-24 [facility] Allergie Allergy 08:29: l s 06 ([facility]) No known Miscella Active U Not [facility] Specified 10-24 [facility] Allergie Allergy 08:29: l s 06 ([facility]) No known Miscella Active U Not [facility] Specified 10-24 [facility]osp[facility] Allergie Allergy 08:29: l s 06 ([facility]) No known Miscella Active U Not [facility] Specified 10-24 [facility] Allergie Allergy 08:29: l s 06 ([facility]) No known Miscella Active U Not [facility] Specified 10-24 [facility] Allergie Allergy 08:29: l s 06 ([facility]) No known Miscella Active U Not [facility] Specified 10-24 [facility] Allergie Allergy 08:29: l s 06 ([facility]) No known Miscella Active U Not [facility] Specified 10-24 [facility] Allergie Allergy 08:29: l s 06 ([facility]) No known Miscella Active U Not [facility] drug neous Specified 10-24 [facility] Allergie Allergy 08:29: l s 06 ([facility]) No known Miscella Active U Not [facility] Specified 07-06 [facility]osp[facility] Allergie Allergy 17:38: l s 26 ([facility]) Social History Smoking Status Start Date Stop Date Source Current Every Day Smoker [facility] Light Tobacco Smoker [facility] Medications Ordered Filled Start Stop Current Ordering Indication Dosage Frequency Signature Comments Components Source Medication Medication Date Date Medication? Clinician (SIG) Name Name triamcinolo triamcinolo No triamcinol [facility] co ne 4-21 one Medical acetonide acetonide 14:57: acetonide Group 40 mg/mL 40 mg/mL 40 40 mg/mL suspension suspension suspension for for for injectionTa injectionTa injectionT ke 2 mL by ke 2 mL by clary 2 mL injection injection by route. route. injection route. Kenalog 40 Kenalog 40 No Kenalog 40 [facility] mg/mL mg/mL 2-10 mg/mL Medical suspension suspension [...] THREE TIMES DAILY pantoprazol pantoprazol No pantoprazo [facility] e 20 mg e 20 mg le [...] MOUTH TWICE DAILY prednisolon prednisolon No prednisolo [facility] e acetate 1 e acetate 1 ne [...] OFFICE OFFICE OFFICE dextroamphe dextroamphe No dextroamph [facility] tamine-amph tamine-amph etamine-am Medical etamine 10 etamine [...] TABLET BY DAY DAY MOUTH EVERY DAY ergocalcife ergocalcife No ergocalcif [facility] rol rol marisol [facility] (vitamin (vitamin (vitamin Wraren up D2) 1,250 D2) 1,250 D2) 1,250 mcg (50,000 mcg (50,000 mcg unit) unit) (50,000 capsule capsule unit) TAKE 1 TAKE 1 capsule CAPSULE BY CAPSULE BY TAKE 1 MOUTH EVERY MOUTH EVERY CAPSULE BY WEEK WEEK MOUTH EVERY WEEK gatifloxaci gatifloxaci No gatifloxac [facility] n 0.5 % eye n 0.5 % eye in 0.5 % Medical drops drops eye drops Group INSTILL 1 INSTILL 1 INSTILL 1 DROP INTO DROP INTO DROP INTO BOTH EYES BOTH EYES BOTH EYES FOUR TIMES FOUR TIMES FOUR TIMES A DAY FOR 7 A DAY FOR 7 A DAY FOR DAYS DAYS 7 DAYS hydrocodone hydrocodone No hydrocodon [facility] 7.5 7.5 e 7.5 Medical mg-acetamin mg-acetamin mg-acetami Group ophen 325 ophen 325 nophen 325 mg tablet mg tablet mg tablet TAKE 1 TAKE 1 TAKE 1 TABLET BY TABLET BY TABLET BY MOUTH EVERY MOUTH EVERY MOUTH 6 HOURS 6 HOURS EVERY 6 HOURS latanoprost latanoprost No latanopros [facility] 0.005 % eye 0.005 % eye t [...] THE EYELID DAILY DAILY THREE TIMES DAILY ondansetron ondansetron No ondansetro [facility] 8 mg 8 mg n 8 mg Medical disintegrat disintegrat disintegra Group ing tablet ing tablet ting DISSOLVE DISSOLVE tablet ONE TABLET ONE TABLET DISSOLVE BY MOUTH BY MOUTH ONE TABLET EVERY 8 EVERY 8 BY MOUTH HOURS HOURS EVERY 8 NEEDED NEEDED HOURS NAUSEA NAUSEA NEEDED NAUSEA oseltamivir oseltamivir No oseltamivi [facility] 75 mg 75 mg r 75 mg Medical capsule capsule capsule Group TAKE 1 TAKE 1 TAKE 1 CAPSULE BY CAPSULE BY CAPSULE BY MOUTH TWICE MOUTH TWICE MOUTH DAILY DAILY TWICE DAILY pantoprazol pantoprazol No pantoprazo [facility] e 20 mg e 20 mg le [...] MOUTH TWICE DAILY prednisolon prednisolon No prednisolo [facility] e acetate 1 e acetate 1 ne [...] route. route. route. alprazolam alprazolam No alprazolam [facility] 0.5 mg 0.5 mg 0.5 mg Medical tablet tablet tablet Group INSTRUCTION INSTRUCTION INSTRUCTIO S WILL BE S WILL BE NS WILL BE GIVEN AT GIVEN AT GIVEN AT OFFICE OFFICE OFFICE dextroamphe dextroamphe No dextroamph [facility] tamine-amph tamine-amph etamine-am Medical etamine 10 etamine [...] TABLET BY DAY DAY MOUTH EVERY DAY ergocalcife ergocalcife No ergocalcif [facility] (vitamin (vitamin (vitamin [place] up D2) 1,250 D2) 1,250 D2) 1,250 mcg (50,000 mcg (50,000 mcg unit) unit) (50,000 capsule capsule unit) TAKE 1 TAKE 1 capsule CAPSULE BY CAPSULE BY TAKE 1 MOUTH EVERY MOUTH EVERY CAPSULE BY WEEK WEEK MOUTH EVERY WEEK gatifloxaci gatifloxaci No gatifloxac [facility] n 0.5 % eye n 0.5 % eye in 0.5 % Medical drops drops eye drops Group INSTILL 1 INSTILL 1 INSTILL 1 DROP INTO DROP INTO DROP INTO BOTH EYES BOTH EYES BOTH EYES FOUR TIMES FOUR TIMES FOUR TIMES A DAY FOR 7 A DAY FOR 7 A DAY FOR DAYS DAYS 7 DAYS hydrocodone hydrocodone No hydrocodon [facility] 7.5 7.5 e 7.5 Medical mg-acetamin mg-acetamin mg-acetami Group ophen 325 ophen 325 nophen 325 mg tablet mg tablet mg tablet TAKE 1 TAKE 1 TAKE 1 TABLET BY TABLET BY TABLET BY MOUTH EVERY MOUTH EVERY MOUTH 6 HOURS 6 HOURS EVERY 6 HOURS latanoprost latanoprost No latanopros [facility] 0.005 % eye 0.005 % eye t [...] THE EYELID DAILY DAILY THREE TIMES DAILY ondansetron ondansetron No ondansetro [facility] 8 mg 8 mg n 8 mg Medical disintegrat disintegrat disintegra Group ing tablet ing tablet ting DISSOLVE DISSOLVE tablet ONE TABLET ONE TABLET DISSOLVE BY MOUTH BY MOUTH ONE TABLET EVERY 8 EVERY 8 BY MOUTH HOURS HOURS EVERY 8 NEEDED NEEDED HOURS NAUSEA NAUSEA NEEDED NAUSEA oseltamivir oseltamivir No oseltamivi [facility] 75 mg 75 mg r 75 mg Medical capsule capsule capsule Group TAKE 1 TAKE 1 TAKE 1 CAPSULE BY CAPSULE BY CAPSULE BY MOUTH TWICE MOUTH TWICE MOUTH DAILY DAILY TWICE DAILY pantoprazol pantoprazol No pantoprazo [facility] e 20 mg e 20 mg le 20 mg Medic al tablet,iqra tablet,iqra tablet,del Group yed release yed release ayed TAKE 1 TAKE 1 release TABLET BY TABLET BY TAKE 1 MOUTH EVERY MOUTH EVERY TABLET BY DAY DAY MOUTH EVERY DAY pantoprazol pantoprazol No pantoprazo [facility] e 40 mg e 40 mg le [...] route. route. route. alprazolam alprazolam No alprazolam [facility] 0.5 mg 0.5 mg 0.5 mg Medical tablet tablet tablet Group INSTRUCTION INSTRUCTION INSTRUCTIO S WILL BE S WILL BE NS WILL BE GIVEN AT GIVEN AT GIVEN AT OFFICE OFFICE OFFICE dextroamphe dextroamphe No dextroamph [facility] tamine-amph tamine-amph etamine-am Medical etamine 10 etamine [...] TABLET BY DAY DAY MOUTH EVERY DAY ergocalcife ergocalcife No ergocalcif [facility] (vitamin (vitamin (vitamin [place] up D2) 1,250 D2) 1,250 D2) 1,250 mcg (50,000 mcg (50,000 mcg unit) unit) (50,000 capsule capsule unit) TAKE 1 TAKE 1 capsule CAPSULE BY CAPSULE BY TAKE 1 MOUTH EVERY MOUTH EVERY CAPSULE BY WEEK WEEK MOUTH EVERY WEEK gatifloxaci gatifloxaci No gatifloxac [facility] n 0.5 % eye n 0.5 % eye in 0.5 % Medical drops drops eye drops Group INSTILL 1 INSTILL 1 INSTILL 1 DROP INTO DROP INTO DROP INTO BOTH EYES BOTH EYES BOTH EYES FOUR TIMES FOUR TIMES FOUR TIMES A DAY FOR 7 A DAY FOR 7 A DAY FOR DAYS DAYS 7 DAYS hydrocodone hydrocodone No hydrocodon [facility] 7.5 7.5 e 7.5 Medical mg-acetamin mg-acetamin mg-acetami Group ophen 325 ophen 325 nophen 325 mg tablet mg tablet mg tablet TAKE 1 TAKE 1 TAKE 1 TABLET BY TABLET BY TABLET BY MOUTH EVERY MOUTH EVERY MOUTH 6 HOURS 6 HOURS EVERY 6 HOURS latanoprost latanoprost No latanopros [facility] 0.005 % eye 0.005 % eye t [...] THE EYELID DAILY DAILY THREE TIMES DAILY ondansetron ondansetron No ondansetro [facility] 8 mg 8 mg n 8 mg Medical disintegrat disintegrat disintegra Group ing tablet ing tablet ting DISSOLVE DISSOLVE tablet ONE TABLET ONE TABLET DISSOLVE BY MOUTH BY MOUTH ONE TABLET EVERY 8 EVERY 8 BY MOUTH HOURS HOURS EVERY 8 NEEDED NEEDED HOURS NAUSEA NAUSEA NEEDED NAUSEA oseltamivir oseltamivir No oseltamivi [facility] 75 mg 75 mg r 75 mg Medical capsule capsule capsule Group TAKE 1 TAKE 1 TAKE 1 CAPSULE BY CAPSULE BY CAPSULE BY MOUTH TWICE MOUTH TWICE MOUTH DAILY DAILY TWICE DAILY pantoprazol pantoprazol No pantoprazo [facility] e 20 mg e 20 mg le 20 mg Medic al tablet,iqra tablet,iqra tablet,del Group yed release yed release ayed TAKE 1 TAKE 1 release TABLET BY TABLET BY TAKE 1 MOUTH EVERY MOUTH EVERY TABLET BY DAY DAY MOUTH EVERY DAY pantoprazol pantoprazol No pantoprazo [facility] e 40 mg e 40 mg le [...] route. route. route. azithromyci azithromyci No azithromyc [facility] n 250 mg n 250 mg in 250 mg Me dical tablet tablet tablet Group ID NOW ID NOW No ID NOW [facility] COVID-19 COVID-19 COVID-19 Med ical Test Kit Test Kit Test Kit [place] up TEST TEST TEST DIRECTED DIRECTED DIRECTED Kenalog 40 Kenalog 40 No 1mL Kenalog 40 [facility] mg/mL mg/mL mg/mL Medical suspension suspension suspension Group for for for injection injection injection Take 1 mL Take 1 mL Take 1 mL by by by injection injection injection route. route. route. methylpredn methylpredn No methylpred [facility] isolone 4 isolone 4 nisolone 4 Medical mg tablets mg tablets mg tablets Group in a dose in a dose in a dose pack FOLLOW pack FOLLOW pack PACKAGE PACKAGE FOLLOW DIRECTIONS DIRECTIONS PACKAGE DIRECTIONS Mobic 15 mg Mobic 15 mg No 1 Q1D Mobic 15 [facility] tablet Take tablet Take mg tablet Medical 1 tablet 1 tablet Take 1 Group every day every day tablet by oral by oral every day route. route. by oral route. pantoprazol pantoprazol No pantoprazo [facility] e 40 mg e 40 mg le 40 mg Medic al tablet,iqra tablet,iqra tablet,del Group yed release yed release ayed TAKE 1 TAKE 1 release TABLET BY TABLET BY TAKE 1 MOUTH TWICE MOUTH TWICE TABLET BY DAILY DAILY MOUTH TWICE DAILY azithromyci azithromyci No azithromyc [facility] n 250 mg n 250 mg in 250 mg Me dical tablet tablet tablet Group ID NOW ID NOW No ID NOW [facility] COVID-19 COVID-19 COVID-19 Med ical Test Kit Test Kit Test Kit [place] up TEST TEST TEST DIRECTED DIRECTED DIRECTED latanoprost latanoprost No latanopros [facility] 0.005 % eye 0.005 % eye t 0.005 % Medical drops drops eye drops Group INSTILL 1 INSTILL 1 INSTILL 1 DROP IN DROP IN DROP IN BOTH EYES BOTH EYES BOTH EYES EVERY NIGHT EVERY NIGHT EVERY NIGHT meloxicam meloxicam No meloxicam [facility] 15 mg 15 mg 15 mg Medical tablet TAKE tablet TAKE tablet Group 1 TABLET BY 1 TABLET BY TAKE 1 MOUTH EVERY MOUTH EVERY TABLET BY DAY DAY MOUTH EVERY DAY methylpredn methylpredn No methylpred [facility] isolone 4 isolone 4 nisolone 4 Medical [...] THREE TIMES DAILY pantoprazol pantoprazol No pantoprazo [facility] e 20 mg e 20 mg le [...] TWICE DAILY triamcinolo triamcinolo No 2mL triamcinol [facility] ne ne one Medical acetonide acetonide acetonide Group 40 mg/mL 40 mg/mL 40 mg/mL suspension suspension suspension for for for injection injection injection Take 2 mL Take 2 mL Take 2 mL by by by injection injection injection route. route. route. dextroamphe dextroamphe No dextroamph [facility] tamine-amph tamine-amph etamine-am Medical etamine 10 etamine 10 phetamine Group mg tablet mg tablet 10 mg TAKE 1 TAKE 1 tablet TABLET BY TABLET BY TAKE 1 MOUTH EVERY MOUTH EVERY TABLET BY MORNING MORNING MOUTH EVERY MORNING dextroamphe dextroamphe No dextroamph [facility] tamine-amph tamine-amph etamine-am Medical etamine 20 etamine 20 phetamine Group mg tablet mg tablet 20 mg TAKE 1 TAKE 1 tablet TABLET BY TABLET BY TAKE 1 MOUTH EVERY MOUTH EVERY TABLET BY DAY DAY MOUTH EVERY DAY latanoprost latanoprost No latanopros [facility] 0.005 % eye 0.005 % eye t 0.005 % Medical drops drops eye drops Group INSTILL 1 INSTILL 1 INSTILL 1 DROP IN DROP IN DROP IN BOTH EYES BOTH EYES BOTH EYES EVERY NIGHT EVERY NIGHT EVERY NIGHT meloxicam meloxicam No meloxicam [facility] 15 mg 15 mg 15 mg Medical [...] THREE TIMES DAILY pantoprazol pantoprazol No pantoprazo [facility] e 20 mg e 20 mg le [...] TWICE DAILY triamcinolo triamcinolo No 2mL triamcinol [facility] ne [...] OFFICE OFFICE OFFICE dextroamphe dextroamphe No dextroamph [facility] tamine-amph tamine-amph etamine-am Medical etamine 10 etamine 10 phetamine Group mg tablet mg tablet 10 mg TAKE 1 TAKE 1 tablet TABLET BY TABLET BY TAKE 1 MOUTH EVERY MOUTH EVERY TABLET BY MORNING MORNING MOUTH EVERY MORNING dextroamphe dextroamphe No dextroamph [facility] tamine-amph tamine-amph etamine-am Medical etamine 20 etamine [...] DAYS 7 DAYS latanoprost latanoprost No latanopros [facility] 0.005 % eye 0.005 % eye t 0.005 % Medical drops drops eye drops Group INSTILL 1 INSTILL 1 INSTILL 1 DROP IN DROP IN DROP IN BOTH EYES BOTH EYES BOTH EYES EVERY NIGHT EVERY NIGHT EVERY NIGHT meloxicam meloxicam No meloxicam [facility] 15 mg 15 mg 15 mg Medical [...] Time Observation Value Comments Source BP Diastolic 2022-12-24 93 mm[Hg] [facility] 00:00:00 Height 2022-12-24 70 [in_i] [facility] 00:00:00 BMI (Body Mass 2022-12-24 40.2 kg/m2 [facility] Index) 00:00:00 BP Systolic 2022-12-24 143 mm[Hg] [facility] 00:00:00 Body Weight 2022-12-24 280 [lb_av] [facility] 00:00:00 BP Diastolic 2022-11-17 78 mm[Hg] [facility] 00:00:00 Height 2022-11-17 70 [in_i] [facility] 00:00:00 BMI (Body Mass 2022-11-17 40.2 kg/m2 [facility] Index) 00:00:00 BP Systolic 2022-11-17 126 mm[Hg] [facility] 00:00:00 Body Weight 2022-11-17 280 [lb_av] [facility] 00:00:00 BP Diastolic 2022-10-20 78 mm[Hg] [facility] 00:00:00 Height 2022-10-20 70 [in_i] [facility] 00:00:00 BMI (Body Mass 2022-10-20 40.2 kg/m2 [facility] Index) 00:00:00 BP Systolic 2022-10-20 126 mm[Hg] [facility] 00:00:00 Body Weight 2022-10-20 280 [lb_av] [facility] 00:00:00 BP Diastolic 2022-08-26 84 mm[Hg] [facility] 00:00:00 Height 2022-08-26 70 [in_i] [facility] 00:00:00 BMI (Body Mass 2022-08-26 40.2 kg/m2 [facility] Index) 00:00:00 BP Systolic 2022-08-26 136 mm[Hg] [facility] 00:00:00 Body Weight 2022-08-26 280 [lb_av] [facility] 00:00:00 BP Diastolic 2022-05-07 126 mm[Hg] [facility] 00:00:00 Height 2022-05-07 70 [in_i] [facility] 00:00:00 BP Systolic 2022-05-07 182 mm[Hg] [facility] 00:00:00 BP Diastolic 2022-01-29 83 mm[Hg] [facility] 00:00:00 Height 2022-01-29 70 [in_i] [facility] 00:00:00 BMI (Body Mass 2022-01-29 38.3 kg/m2 [facility] Index) 00:00:00 BP Systolic 2022-01-29 128 mm[Hg] [facility] 00:00:00 Body Weight 2022-01-29 267 [lb_av] [facility] 00:00:00 BP Diastolic 2021-11-20 83 mm[Hg] [facility] 00:00:00 Height 2021-11-20 70 [in_i] [facility] 00:00:00 BMI (Body Mass 2021-11-20 38.3 kg/m2 [facility] Index) 00:00:00 BP Systolic 2021-11-20 143 mm[Hg] [facility] 00:00:00 Body Weight 2021-11-20 267 [lb_av] [facility] 00:00:00 BP Diastolic 2018-12-08 85 mm[Hg] [facility] 00:00:00 [facility] Height 2018-12-08 70 [in_i] [facility] 00:00:00 [facility] BMI (Body Mass 2018-12-08 42 kg/m2 [facility] Index) 00:00:00 [facility] BP Systolic 2018-12-08 141 mm[Hg] [facility] 00:00:00 [facility] Body Weight 2018-12-08 293 [lb_av] [facility] 00:00:00 [facility] Procedures Procedure Date / Time Performing Clinician Source Performed Repair, Tendon or 2022-09-30 00:00:00 [facility] Muscle, Upper Arm or Elbow, Primary or Secondary (Excludes Rotator Cuff) (Surg) Repair, Tendon or 2022-09-29 00:00:00 [facility] Muscle, Upper Arm or Elbow, Primary or Secondary (Excludes Rotator Cuff) (Surg) XR, shoulder, 2 or 2021-11-11 00:00:00 [facility] more view XR, elbow, 3 or more 2021-11-11 00:00:00 [facility] view US, abdomen, 2018-12-08 00:00:00 [facility] jazmine complete [facility] Other [facility] Plan of Care Planned Activity Planned Date Details Comments Source Instructions [facility] Encounters Start End Encounter Admission Attending Care Care Encounter Source Date/Time Date/Time Type Type Clinicians Facility Department ID 2021-08-01 Outpatient JONATHAN CASTILLO [id number] [facility] 17:17:06 [id number] [facility] 2019-12-07 Inpatient JONATHAN PHILLIPS [id number] [facility] 11:16:[address] 2022-12-24 2022-12-24 Skyla Musa [facility] [place] [facility] [id number] [facility] 00:00:00 00:00:00 MD Ashok: [facility] [address]/[place] - Gr farzad [address], [facility] [address] , Ph. 2022-11-17 2022-11-17 Skyla Musa [facility] [place] [facility] [id number] [facility] 00:00:00 00:00:00 MD Ashok: Silvestre Ferrell [facility] [address]/[place] - Kiran [address], [facility] [address] , Ph. 2022-10-20 2022-10-20 Outpatient ASHOK_ANNA [facility] SMG [id number] [facility] 00:00:00 00:00:00 TATIANA [id number] Medica l Group 2022-10-20 2022-10-20 Outpatient ASHOK_LORAINEIST [facility] SMG 540 [id number] [facility] 00:00:00 00:00:00 TATIANA [id number] Medica l Group 2022-10-20 2022-10-20 Outpatient ASHOK_ANNA [facility] SMG [id number] [facility] 00:00:00 00:00:00 TATIANA [id number] Medica l Group 2022-10-20 2022-10-20 Skyla E [facility] [place] [facility] [id number] [facility] 00:00:00 00:00:00 MD Ashok: [facility] [address]/VITALIY/LAURA [address], [facility] [place] [address] , Ph. 2022-10-06 2022-10-06 Outpatient BANKS_ANNA [facility] [id number] [facility] 00:00:00 00:00:00 TATIANA [id number] Medica l Group 2022-09-30 2022-09-30 Outpatient Elective Mills Dahl, MCSETXm MCSETXm TE [id number] M[facility] 05:42:00 10:30:00 Skyla 93 2022-09-30 2022-09-30 Outpatient [facility]ANKS[facility]ANNA [facility] [id number] [facility] 00:00:00 00:00:00 TATIANA [id number] Medica l Group 2022-09-28 2022-09-28 Outpatient Elective Mills Dahl, MCSETXm MCSETXm TE [id number] [facility] 10:56:00 10:57:00 Skyla 01 2022-09-28 2022-09-28 Outpatient MCSETXm MCSETXm [id number] [facility] 10:56:00 10:56:00 01 2022-08-27 2022-08-27 Outpatient BANKS_ANNA [facility] [id number] [facility] 00:00:00 00:00:00 TATIANA [id number] Medica l Group 2022-08-26 2022-08-26 Outpatient ASHOK_ANNA [facility] [id number] [facility] 00:00:00 00:00:00 TATIANA [id number] Medica l Group 2022-08-26 2022-08-26 Skyla E [facility] [id number] [facility] 00:00:00 00:00:00 MD Ashok: [facility] ical [address] [place]/VITALIY/LAURA [address], [facility] [place] [address] , Ph. 2022-06-26 2022-06-26 Outpatient JEWISH [id number] 01:00:00 01:00:00 [facility] JONATHAN [id number] 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 [id number] [facility] 20:00:00 20:00:00 [facility] l ([facility]) 2022-05-26 2022-05-26 Outpatient BANKS_KRIST [facility] 540 [facility] 00:00:00 00:00:00 TATIANA [id number] Medica l Group 2022-05-10 2022-05-10 Outpatient BANKS_KRIST [facility] SMG 540 [facility] 00:00:00 00:00:00 TATIANA [id number] Medica l Group 2022-05-07 2022-05-07 Outpatient BANKS_KRIST [facility] 540 [facility] 00:00:00 00:00:00 TATIANA [id number] Medica l Group 2022-05-07 2022-05-07 Outpatient Ashok [facility] [id number] 00:00:00 00:00:00 Skyla Musa [id number] 2022-05-07 Skyla Musa [facility] [place] - SMG [facility] 00:00:00 00:00:00 MD Ashok: [facility] ica [address]/VITALIY/LAURA [address], [facility] [address] , Ph. 2022-04-28 2022-04-28 Outpatient BANKS_KRIST [facility] 540 [facility] 02:51:00 02:51:00 TATIANA [id number] Medica l Group 2022-04-21 2022-04-21 Outpatient JEWISH [id number] 01:00:00 01:00:00 Encounter JONATHAN [id number] 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 [id number] Gnosticism 20:00:00 20:00:00 ANDER Hospit a l ([facility]) 2022-03-31 2022-03-31 Outpatient [facility] SMG 540 [id number] [place] 07:11:00 07:11:00 [facility] 2022-01-30 2022-01-30 Outpatient [facility] SMG 540 [id number] [place] 10:38:00 10:38:00 [facility] 2022-01-29 2022-01-29 Outpatient [facility] SMG 540 [id number] [place] 03:14:00 03:14:00 [facility] 2022-01-29 2022-01-29 Outpatient [place], SMG SMG [id number] 00:00:00 00:00:00 Skyla Musa [id number] 2022-01-29 2022-01-29 Skyla Musa SMG [place] - SMG [place] 00:00:00 00:00:00 MD Ashok: [facility] ica [address]VITALIY/LAURA [address] and [address], [facility], [facility] [address] , Ph. 2022-01-17 2022-01-17 Outpatient [facility]KS[facility] SM[facility] SMG 540 [id number] [place] 01:42:00 01:42:00 [facility] 2021-11-27 2021-11-27 Outpatient [facility] SMG 540 [id number] [place] 11:39:00 11:39:00 [facility] 2021-11-25 2021-11-25 Outpatient [facility] SMG [id number] [place] 03:11:00 03:11:00 [facility] 2021-11-21 2021-11-21 Outpatient [facility] SMG SMG [id number] [place] 09:10:00 09:10:00 [facility] 2021-11-20 2021-11-20 Outpatient [facility] SMG SMG [id number] [place] 04:49:00 04:49:00 [facility] 2021-11-20 2021-11-20 Outpatient SUSI Mills [facility] [id number] 00:00:00 00:00:00 Skyla Musa [id number] 2021-11-20 2021-11-20 Skyla GOLDMAN [place] - [facility] 10 [place] 00:00:00 00:00:00 MD Ashok: [facility] ical [address] AR/LA/LAURA Ferrell [address]zad [address] and [address], [place] [address] , Ph. 2021-11-11 2021-11-11 Outpatient [facility]O [facility] 540 [place] 10:15:00 10:15:00 [facility] 2021-10-16 2021-10-16 Outpatient 3 TRINITY B[place] OPI [id number] Gnosticism 11:29:13 11:29:13 MARGARITA Hospit a l ([facility]) 2019-12-07 2019-12-07 Outpatient EHJONATHAN ABEBE CHRISTUS [id number] [facility]U 12:41:00 12:41:00 [facility] 60 [facility] 2019-11-24 2019-11-24 Outpatient EL JONATHAN WALKER [facility]STUS [id number] [place] 10:05:00 11:25:00 [facility] 85 [facility] 2019-10-19 2019-10-19 Outpatient EL JONATHAN WALKER [facility] [id number] [facility] 06:06:00 07:53:00 [facility] 12 [facility] 2019-09-21 2019-09-21 Outpatient EL EHMIS CHRIST [facility]US [id number] [facility] 06:30:00 08:20:00 [facility] 30 [facility] 2018-12-08 2018-12-08 Ruben [place]IAN [place] - [id number] [place] 00:00:00 00:00:00 [facility] [address] [facility], DO: [address], [address], [place] [address] , Ph. Results Test Description Test Time Test Comments Results Result Comments Source vitamin D, 25-hydroxy 2022-09-29 00:00:00 Test Item Value Reference Range Interpretation Comme nts vitamin D, 25-hydroxy (test code = vitamin D, 25-hydroxy) 21.4 N G/mL 30.0-100.0 A [facility] [id number] 12:19:00 Test Item Value Reference Range Interpretation Comments SODIUM (test code = 137 mmol/L 136-145 N NA) Potassium,K (test 4.2 mmol/L 3.5-5.1 N code = K) Chloride (test code 103 mmol/L 98-107 N = CL) Carbon Dioxide (test 28 mmol/L 21-32 N code = CO2) Anion Gap (test code 6 mmol/L 7-16 L = GAP) Blood Urea Nitrogen 10 mg/dL 7-18 N (test code = BUN) Creatinine (test 0.8 mg/dL 0.7-1.3 N code = CREATT) Creatinine Clr Calc 164.24 mL/min Pharmacy (test code = CRCLPHA) Estimated Glomerular 115 See_Comment Reporte d eGFR is Filt Rate (test code based o n the CKD-EPI = EGFR.XX) 2020 equation thatdoes not us e a race coefficien t. Additional information can be found at:[email or web address]_q cb_eg fr_summary_flye r5.pd f (kidney.org) [Automated mess age] The system Nut[employer] generated this result transmit glenny reference range : >=90 ml/min/1.7 3m2. The reference r killian was not used to interpret this result as normal/abnormal . BUN/Creatinine Ratio 13 (test code = BCRATIO) Glucose (test code = 113 mg/dL 74-106 H GLU) Calcium (test code = 9.0 mg/dL 8.5-10.1 N CA) Vitamin D, 51-[id number] 12:19:00 Test Item Value Reference Range Interpretation Comments Vitamin D, 21.4 ng/mL 30.0-100.0 A Vitamin D defic iency has 25-Hydroxy (test been define d by the code = VD25OH.L) [place] o fMedicine and an Endocrine So ciety practice guidel ine as alevel of serum 25-OH vitamin D less than 20 ng/mL (1,2).The Endocrine Society went on to further define vitamin Dinsufficiency as a level between 21 and 29 ng/mL (2).1. IOM (Ins titute of Medicine). 2010 . Dietary reference intak es for calcium and D. Ferrera [place]: The [employer] .2. Devyn MF, Glenny NC, Rakel rios DORADO, et al. Evaluation, treatment, and prevention of vitamin D de ficiency: an Endocrine So [facility] clinical practi ce guideline. JCEM . 2010; 96(7):1911-30.P erformed at: - [facility] [id number] [facility] [place], [place] [id number] Di elle: Mo Styles MD, Phone: [phone] Blood Urea [id number] 12:19:00 Test Item Value Reference Range Interpretation Comments Blood Urea Nitrogen (test code = 10 mg/dL 7-18 N BUN) Prothrombin Time [id number] 12:19:00 Test Item Value Reference Range Interpretation Comments Prothrombin Time (test code = 11.1 Seconds 9.2-12.0 N PT) INR (test code = INR) 1.1 ratio 0.9-1.2 N Partial Thromboplastin [id number] 12:19:00 Test Item Value Reference Range Interpretation Comments Partial Thromboplastin Time (test 27 Seconds 24-35 N code = PTT) UA, Urinalysis Rflx [id number] 11:20:00 Test Item Value Reference Range Interpretation Comments Color,Urine (test code = UCOL) Yellow Yellow Clarity,Urine (test code = UCLAR) Clear Clear PH,Urine (test code = UPH.XX) 5.5 5.0-8.0 Specific [place],Urine (test code = 1.016 SGU 1.005-1.030 N USG) Blood,Urine (test code = UBLD) Negative Negative Protein,Urine (test code = UPRO) Negative Negative Glucose,Urine (UA) (test code = Negative Negative UGLU) Ketones,Urine (test code = UKET) Negative Negative Nitrate,Urine (test code = UNIT) Negative Negative Bilirubin,Urine (test code = UBIL) Negative Negative Urobilinogen,Urine (test code = 0.2 EU/dL Negative UURO) Leukocyte Esterase,Urine (test code Negative Negative = ULEU) Complete Blood Count Auto [id number] 11:18:00 Test Item Value Reference Range Interpretation Comments White Blood Count (test code = 6.3 x10 3/uL 4.8-10.8 N WBCT) Red Blood Count (test code = 5.21 x10 6/uL 4.60-6.20 N RBC) Hemoglobin (test code = HGBT) 15.3 g/dL 14.0-18.0 N Hematocrit (test code = HCTT) 46.2 % 38.0-52.0 N Mean Corpuscular Volume (test 88.7 fL 80.0-95.0 N code = MCV) Mean Corpuscular Hemoglobin 29.4 pg 26.0-32.0 N (test code = MCH) Mean Corpuscular HGB Conc (test 33.1 g/dL 31.0-36.0 N code = MCHC) Red Cell Distribution Width 12.3 % 11.5-14.5 N (test code = RDW) Platelet Count (test code = 292 x10 3/uL 140-440 N PLTT) Mean Platelet Volume (test code 9.3 fL 7.5-11.2 N = MPV) Immature Granulocytes % (Auto) 0.3 % (test code = IMMGRAN%) Neutrophils % (Auto) (test code 52.6 % = NE%) Lymphocytes % (Auto) (test code 34.2 % = LY%) Monocytes % (Auto) (test code = 10.3 % MO%) Eosinophils % (Auto) (test code 2.1 % = EO%) Basophils % (Auto) (test code = 0.5 % BA%) Immature Granulocytes # (Auto) 0.02 x10 3/uL (test code = IMMGRAN#) Neutrophils # (Auto) (test code 3.3 x10 3/uL 2.7-7.3 N = NE#) Lymphocytes # (Auto) (test code 2.2 x10 3/uL 0.8-3.5 N = LY#) Monocytes # (Auto) (test code = 0.7 x10 3/uL 0.3-0.9 N MO#) Eosinophils # (Auto) (test code 0.1 x10 3/uL 0.0-0.3 N = EO#) Basophils # (Auto) (test code = 0.0 x10 3/uL 0.0-0.1 N BA#) nRBC Abs (test code = NRBCA) 0 10>3/mcL nRBC Pct (test code = NRBCP) 0 % Erythrocyte Sedimentation [id number] 11:18:00 Test Item Value Reference Range Interpretation Comments Erythrocyte Sedimentation Rate (test 2 0-15 N code = ESR) CBC W Auto Differential panel - [id number] 00:00:00 Test Item Value Reference Range Interpretation Comments white blood count (test code = 6.3 x10 3/uL 4.8-10.8 white blood count) red blood count (test code = 5.21 x10 6/uL 4.60-6.20 red blood count) hemoglobin (test code = 15.3 g/dL 14.0-18.0 hemoglobin) hematocrit (test code = 46.2 % 38.0-52.0 hematocrit) mean corpuscular volume (test 88.7 fL 80.0-95.0 code = mean corpuscular volume) mean corpuscular hemoglobin 29.4 pg 26.0-32.0 (test code = mean corpuscular hemoglobin) mean corpuscular HGB conc (test 33.1 g/dL 31.0-36.0 code = mean corpuscular HGB conc) red cell distribution width 12.3 % 11.5-14.5 (test code = red cell distribution width) platelet count (test code = 292 x10 3/uL 140-440 platelet count) mean platelet volume (test code 9.3 fL 7.5-11.2 = mean platelet volume) immature granulocytes % (auto) 0.3 % (test code = immature granulocytes % (auto)) neutrophils % (auto) (test code 52.6 % = neutrophils % (auto)) lymphocytes % (auto) (test code 34.2 % = lymphocytes % (auto)) monocytes % (auto) (test code = 10.3 % monocytes % (auto)) eosinophils % (auto) (test code 2.1 % = eosinophils % (auto)) basophils % (auto) (test code = 0.5 % basophils % (auto)) immature granulocytes # (auto) 0.02 x10 3/uL (test code = immature granulocytes # (auto)) neutrophils # (auto) (test code 3.3 x10 3/uL 2.7-7.3 = neutrophils # (auto)) lymphocytes # (auto) (test code 2.2 x10 3/uL 0.8-3.5 = lymphocytes # (auto)) monocytes # (auto) (test code = 0.7 x10 3/uL 0.3-0.9 monocytes # (auto)) eosinophils # (auto) (test code 0.1 x10 3/uL 0.0-0.3 = eosinophils # (auto)) basophils # (auto) (test code = 0.0 x10 3/uL 0.0-0.1 basophils # (auto)) NRBC abs (test code = NRBC abs) 0 10>3/mcL NRBC pct (test code = NRBC pct) 0 % [facility] [Mass/volume] in Serum or [id number] 00:00:00 Test Item Value Reference Range Interpretation Comments blood urea nitrogen (test code = 10 mg/dL 7-18 blood urea nitrogen) [facility], urinalysis reflex [id number] 00:00:00 Test Item Value Reference Range Interpretation Comments color,urine (test code = yellow yellow color,urine) clarity,urine (test code = clear clear clarity,urine) pH,urine (test code = pH,urine) 5.5 5.0-8.0 specific gravity,urine (test code = 1.016 sgu 1.005-1.030 specific gravity,urine) blood,urine (test code = negative negative blood,urine) protein,urine (test code = negative negative protein,urine) glucose,urine (UA) (test code = negative negative glucose,urine (UA)) ketones,urine (test code = negative negative ketones,urine) nitrate,urine (test code = negative negative nitrate,urine) bilirubin,urine (test code = negative negative bilirubin,urine) urobilinogen,urine (test code = 0.2 eu/dL negative urobilinogen,urine) leukocyte esterase,urine (test code negative negative = leukocyte esterase,urine) [facility]/[id number] 00:00:00 Test Item Value Reference Range Interpretation Comments prothrombin time (test code = 11.1 seconds 9.2-12.0 prothrombin time) INR (test code = INR) 1.1 ratio 0.9-1.2 [facility] [id number] 00:00:00 Test Item Value Reference Range Interpretation Comments partial thromboplastin time (test 27 seconds 24-35 code = partial thromboplastin time) [facility] sedimentation [id number] 00:00:00 Test Item Value Reference Range Interpretation Comments erythrocyte sedimentation rate (test 2 0-15 code = erythrocyte sedimentation rate) [facility] 2000 panel - Serum or [id number] 00:00:00 Test Item Value Reference Range Interpretation Comments sodium (test code = 137 mmol/L 136-145 sodium) potassium,K (test 4.2 mmol/L 3.5-5.1 code = potassium,K) chloride (test code 103 mmol/L 98-107 = chloride) carbon dioxide (test 28 mmol/L 21-32 code = carbon dioxide) anion gap (test code 6 mmol/L 7-16 L = anion gap) blood urea nitrogen 10 mg/dL 7-18 (test code = blood urea nitrogen) creatinine (test 0.8 mg/dL 0.7-1.3 code = creatinine) creatinine clr calc 164.24 mL/min pharmacy (test code = creatinine clr calc pharmacy) estimated glomerular 115 See_Comment [Autom ated message] filt rate (test code The sys tem which = estimated generated this glomerular filt result trans mitted rate) reference range : >=90 mL/min/1.7 3M2. The reference r killian was not used to interpret this result as normal/abnormal . BUN/creatinine ratio 13 (test code = BUN/creatinine ratio) glucose (test code = 113 mg/dL 74-106 H glucose) calcium (test code = 9.0 mg/dL 8.5-10.1 calcium) [facility] Center[facility] [id number] 17:15:00 Test Item Value Reference Range Interpretation Comments WHOLE BLOOD GLUCOSE 148 MG/DL 70-99 Fastin g glucose (test code = POC GLU) normal <100 MG/DL- [employer] recommend ation [id number] 16:52:00 Test Item Value Reference Range Interpretation [...] 1.000-1.025 UAMICRO (test code = UAMICRO) NO [id number] 13:04:00 Test Item Value Reference Range Interpretation [...] K/UL 1.2-7.2 = NEUT) HEPATITIS C ANTIBODY [id number] 12:06:00 Test Item Value Reference Range Interpretation [...] confirmation re sults will follow. PROBRAIN NATRIURETIC [id number] 10:56:00 Test Item Value Reference Range Interpretation Comments NT-PROBNP (test code 37 pg/mL Exclusi on for heart = PROBNP) failure for pat ients of all ages is 300 pg/mL. Inclusion for h eart failure for pat ients age <50 is 450 pg/m L; for patients age 50 -75 is 900 pg/mL; for reg ents age >75 is 1800 pg/ mL. [id number] 10:56:00 Test Item Value Reference Range Interpretation Comments %CKMB (test code = %MB) 0.5 % CKMB (test code = CKMB) 0.5 NG/ML 0.22-2.4 CK (test code = CK) 96 U/L 55-170 CKINTERP (test code = NEGATIVE Negative CKINTERP) PROTHROMBIN TIME WITH [id number] 10:56:00 Test Item Value Reference Range Interpretation Comments PROTHROMBIN TIME 12.6 SECONDS 12.0-14.6 INR Usual R killian = 2 (test code = PT) to 3 for pr evention of deep vein thrombosis (DVT ) INR (test code = INR) 0.9 [id number] 10:56:00 Test Item Value Reference Range Interpretation Comments PTT (test code = 26.9 SECONDS 24.4-36.3 HEPARIN THE RAPEUTIC PTT) RANGE 57-92 SEC ONDS TROPONIN [id number] 10:26:00 Test Item Value Reference Range Interpretation Comments TROPER (test code = 0.00 ng/ml 0.0-0.08 INTE RPRETIVE TROPER) DATA A POC T ROPONIN OF </= 0.08 NG/ ML IS CONSIDERED NEGA TIVE CHEST 1 VIEW [id number] 10:23:00[place] [id number] IMAGING REPORTPatient Name: FERMIN [place] of Service: [id number]: 38 Sex: M Order #: [id number] Room: [facility]: 1980 X-Ray Number: [id number] Record Number: [id number] Hospital Number: [id number] Physician: Tomi ESCOTO Physician: Aleena ESCOTO.10:10 AMHistory: Chest pain.Technique: Single AP chest projection.Findings: Single chest projection demonstrates normal heart size and clearlungs. No infiltrates or abnormalities are depicted. The osseous structuresappear intact.Impression:No acute-appearing cardiopulmonary abnormalities.Electronically Signed By: Omer Copeland M.D., 02/24/2018 10:21 AMLegally authenticated by DANO Fisher 2018-02-24 10:21:05FOOT 3 VIEWS 2018-02-24 10:23:00[place] [id number] IMAGING REPORTPatient Name: FERMIN [place] of Service: [id number]: 38 Sex: M Order #: [id number] Room: QERDOB: 1980 X-Ray Number: [id number] Record Number: [id number] Hospital Number: [id number] Physician: Tomi ESCOTO Physician: Aureliano ESCOTO foot.History: Foot pain.Technique: 3 views of the right foot were reviewed.Findings:There is no fracture, dislocation or bony malalignment. The visualizedankle joint appears intact. The soft tissues appear normal.Impression:No specific acute appearing right foot abnormalities.Electronically Signed By: Omer Copeland M.D., 02/24/2018 10:21 AMLegally authenticated by DANO Fisher 2018-02-24 10:21:27WHOLE BLOOD [id number] 09:40:00 Test Item Value Reference Range Interpretation Comments WHOLE BLOOD GLUCOSE 82 mg/dL 70-99 Fastin g glucose (test code = POC GLU) normal <100 MG/DL- [employer] recommendation* *
[2023-01-01] MEDS ORDERED: Ringers Lactate 1,000 ML IV ONE (10:13)
[2023-01-01 10:34] LABS: Absolute Lymphocytes (CBC) 2.1 K/uL (0.7-4.9); Hematocrit 44.8 % (39.6-49.0); Lymphocytes % 38.2 % (15.3-44.8); MCV 87.9 fL (80-100); MPV 7.3 fL (7.6-11.3)
[2023-01-01 10:35] LABS: Specific Gravity 1.023 (1.005-1.030); Urine Bacteria None Seen /HPF (<20); Urine Bilirubin NEGATIVE (Negative); Urine Blood Negative (Negative); Urine Clarity Clear (Clear); Urine Color Yellow (Yellow); Urine Glucose NEGATIVE (Negative); Urine Mucus Slight /HPF (None Seen); Urine Protein TRACE (Negative); Urine RBC <5 /HPF (None Seen); Urine Urobilinogen Normal (Normal); Urine pH 5.5 (5.0-7.0)
[2023-01-01 10:48] LABS: Albumin 3.6 g/dL (3.4-5.0); Bilirubin Total 0.8 mg/dL (0.2-1.0); Potassium 3.8 mEq/L (3.5-5.1); Protein, Total 6.8 g/dL (6.4-8.2)
[2023-01-01] MEDS ORDERED: KETOROLAC 30 MG/ML INJ ONE (11:02)
--- NOTE | 2023-01-01 11:31 | RAD REPORT ---
EXAM DESCRIPTION: CT - Chest For Pe Angio - 01/01/2023 11:07 am CLINICAL HISTORY: Chest pain. right thoracic back pain, recent surgery COMPARISON: No comparisons TECHNIQUE: CT angiogram of the pulmonary arteries was performed with MIP. All CT scans are performed using dose optimization technique as appropriate and may include automated exposure control or mA/KV adjustment according to patient size. FINDINGS: No evidence of pulmonary thromboembolism. No acute aortic finding demonstrated. The lungs are clear. No significant pericardial or pleural fluid. No concerning bony finding. IMPRESSION: No evidence of pulmonary thromboembolism. No acute lung findings.
--- NOTE | 2023-01-01 12:52 | EDPHYS ---
Physician Documentation [facility] Name: Harvey Lewis Age: 42 yrs Sex: Male : 1980 Arrival Date: 01/01/2023 Time: 09:14 Bed 19 Private MD: ED Physician Geoff Moore HPI: 01/01 12:48 This 42 yrs old Male presents to ER via Ambulatory with complaints of Back jmm Pain. 12:48 The patient presents with pain that is acute. This is a 42 year old male with no jmm chronic medical conditions that presents to the ED with complaints of right thoracic back pain beginning this past Wednesday. Denies injury Patient is approx 3 months s/p surgery. Denies chest pain, shortness of breath, abdominal pain.. Historical: - Allergies: 09:36 No Known Allergies; kr3 - PMHx: 09:36 None; kr3 - PSHx: 09:36 Cholecystectomy; gastric sleeve; kr3 - Immunization history:: Adult Immunizations not up to date. - Social history:: Smoking status: Patient reports the use of cigarette tobacco products, denies chronic smoking, but will smoke occasionally. ROS: 12:48 Constitutional: Negative for fever, chills, and weight loss, Cardiovascular: Negative jmm for chest pain, palpitations, and edema, Respiratory: Negative for shortness of breath, cough, wheezing, and pleuritic chest pain. 12:48 Back: Positive for pain with movement. 12:48 All other systems are negative. Exam: 12:48 Constitutional: This is a well developed, well nourished patient who is awake, alert, jmm and in no acute distress. Head/Face: atraumatic. Eyes: EOMI, no conjunctival erythema appreciated ENT: Moist Mucus Membranes Neck: Trachea midline, Supple Chest/axilla: Normal chest wall appearance and motion. Cardiovascular: Regular rate and rhythm. No edema appreciated Respiratory: Normal respirations, no respiratory distress appreciated Abdomen/GI: Non distended 12:48 Skin: General appearance color normal MS/ Extremity: Moves all extremities, no obvious deformities appreciated, no edema noted to the lower extremities Neuro: Awake and alert Psych: Behavior is normal, Mood is normal, Patient is cooperative and pleasant 12:48 Back: pain, that is moderate, of the right subscapular area. Vital Signs: 09:32 BP 152 / 95; Pulse 71; Resp 17; Temp 98.2(O); Pulse Ox 96% on R/A; Weight 124.74 kg; kr3 Height 5 ft. 10 in. ; Pain 8/10; 11:01 BP 158 / 90; Pulse 72; Resp 17; Pulse Ox 97% on R/A; kr3 12:00 BP 149 / 85; Pulse 56; Resp 18; Pulse Ox 98% on R/A; kr3 13:01 BP 152 / 92; Pulse 57; Resp 18; Pulse Ox 98% on R/A; kr3 09:32 Body Mass Index 39.46 (124.74 kg, 177.8 cm) 3 09:32 Pain Scale: Adult kr3 MDM: 09:42 Patient medically screened. [facility] 12:50 Differential diagnosis: Thoracic dissection, pneumonia, PE, back strain. Data reviewed: [facility] vital signs, nurses notes, radiologic studies, CT scan. I considered the following discharge prescriptions or medication management in the emergency department Medications were administered in the Emergency Department. See MAR. Counseling: I had a detailed discussion with the patient and/or guardian regarding: the historical points, exam findings, and any diagnostic results supporting the discharge/admit diagnosis, radiology results, the need for outpatient follow up, to return to the emergency department if symptoms worsen or persist or if there are any questions or concerns that arise at home. ED course: Imaging studies negative. Pain most likely due to MS pain. Advised to follow up with pcp and otherwise given strict return precautions. patient understood and agrees with the plan of care. . 01/01 09:46 Order name: CBC with Diff; Complete Time: 10:52 [facility] 01/01 09:46 Order name: CMP; Complete Time: 10:52 [facility] 01/01 09:46 Order name: Lipase; Complete Time: 10:52 [facility] 01/01 10:11 Order name: Urinalysis w/ reflexes; Complete Time: 10:52 [facility] 01/01 10:53 Order name: CT Chest For PE Angio; Complete Time: 11:39 [facility] 01/01 09:46 Order name: IV Saline Lock; Complete Time: 10:26 [facility] 01/01 09:46 Order name: Labs collected and sent; Complete Time: 10:26 [facility] Administered Medications: 10:26 Drug: Lactated Ringers Solution IV 1000 ml Route: IV; Rate: 1000 bolus; Site: right kr3 antecubital; 13:02 Follow up: Response: No adverse reaction; IV Status: Completed infusion; IV Intake: kr3 1000ml 11:01 Drug: Ketorolac IVP 30 mg Route: IVP; Site: right antecubital; kr3 13:02 Follow up: Response: No adverse reaction kr3 Disposition: 14:47 Co-signature as Attending Physician, Geoff Moore MD I reviewed the patient's care rt provided by the Advanced Practice Provider and agree with the diagnosis and treatment plan. Disposition Summary: 01/01/23 12:52 Discharge Ordered Location: Home [facility] Condition: Stable jmm Diagnosis - Strain of muscle and tendon of back wall of thorax jm Followup: [facility] - With: Private Physician - When: 2 - 3 days - Reason: Recheck today's complaints, Continuance of care, Re-evaluation by your physician Discharge Instructions: - Discharge Summary Sheet [facility] - Thoracic Strain [facility] Forms: - Medication Reconciliation Form [facility] - Thank You Letter [facility] - Antibiotic Education [facility] - Prescription Opioid Use [facility] Prescriptions: - Zanaflex 4 mg Oral Tablet - take 1 tablet by ORAL route every 8 hours As needed; 20 tablet; Refills: 0, [facility] Product Selection Permitted - Diclofenac Sodium 75 mg Oral Tablet Sustained Release - take 1 tablet by ORAL route 2 times per day; 30 tablet; Refills: 0, Product [facility] Selection Permitted Signatures: Dispatcher [employer] EDWalt Dela Cruz PA PA jmm Reid, Kelley, RN RN kr3 Geoff Moore MD MD rt
--- NOTE | 2023-01-01 12:52 | ER ---
Nurse's Notes [facility] Name: Harvey Lewis Age: 42 yrs Sex: Male : 1980 Arrival Date: 01/01/2023 Time: 09:14 Bed 19 Private MD: Diagnosis: Strain of muscle and tendon of back wall of thorax Presentation: 01/01 09:32 Chief complaint: Patient states: I was driving home last Wednesday and caught a cramp in kr3 my back in the Right middle side of my back that has worsened since. It is hard for me to move and care for myself. I also could not get out of bed on Wednesday. Coronavirus screen: Vaccine status: Patient reports receiving the 2nd dose of the covid vaccine. Ebola Screen: Patient denies travel to an Ebola-affected area in the 21 days before illness onset. Initial Sepsis Screen: Does the patient meet any 2 criteria? No. Patient's initial sepsis screen is negative. Does the patient have a suspected source of infection? No. Patient's initial sepsis screen is negative. Risk Assessment: Do you want to hurt yourself or someone else? Patient reports no desire to harm self or others. Onset of symptoms was December 27, 2022. 09:32 Method Of Arrival: Ambulatory kr3 09:32 Acuity: [id number] 3 kr3 Triage Assessment: 09:37 General: Appears in no apparent distress. uncomfortable, Behavior is calm, cooperative, kr3 appropriate for age. Pain: Complains of pain in right subscapular area and right mid back. EENT: No deficits noted. Neuro: Level of Consciousness is awake, alert, obeys commands, Oriented to person, place, time, situation. Cardiovascular: Patient's skin is warm and dry. Respiratory: Airway is patent Respiratory effort is even, unlabored, Respiratory pattern is regular, symmetrical. GI: No signs and/or symptoms were reported involving the gastrointestinal system. : Reports dark urine with strong odor. Derm: No signs and/or symptoms reported regarding the dermatologic system. Musculoskeletal: Circulation, motion, and sensation intact. Historical: - Allergies: 09:36 No Known Allergies; kr3 - PMHx: 09:36 None; kr3 - PSHx: 09:36 Cholecystectomy; gastric sleeve; kr3 - Immunization history:: Adult Immunizations not up to date. - Social history:: Smoking status: Patient reports the use of cigarette tobacco products, denies chronic smoking, but will smoke occasionally. Screenin:01 [facility] ED Fall Risk Assessment (Adult) History of falling in the last 3 months, kr3 including since admission No falls in past 3 months (0 pts) Confusion or Disorientation No (0 pts) Intoxicated or Sedated No (0 pts) Impaired Gait No (0 pts) Mobility Assist Device Used No (0 pt) Altered Elimination No (0 pt) Score/Fall Risk Level 0 - 2 = Low Risk Oriented to surroundings, Maintained a safe environment, Educated pt \T\ family on fall prevention, incl call for assistance when getting out of bed, Assessed \T\ reinforced patient's understanding of fall precautions, Hourly rounding (assess needs \T\ fall precautionary measures) done. Abuse screen: Denies threats or abuse. Nutritional screening: No deficits noted. Tuberculosis screening: No symptoms or risk factors identified. Assessment: 11:01 Reassessment: Patient appears in no apparent distress at this time. Patient and/or kr3 family updated on plan of care and expected duration. Pain level reassessed. Patient is alert, oriented x 3, equal unlabored respirations, skin warm/dry/pink. 12:09 Reassessment: Patient appears in no apparent distress at this time. Patient and/or kr3 family updated on plan of care and expected duration. Pain level reassessed. Patient is alert, oriented x 3, equal unlabored respirations, skin warm/dry/pink. 13:00 Reassessment: Patient appears in no apparent distress at this time. Patient and/or kr3 family updated on plan of care and expected duration. Pain level reassessed. Patient is alert, oriented x 3, equal unlabored respirations, skin warm/dry/pink. Vital Signs: 09:32 BP 152 / 95; Pulse 71; Resp 17; Temp 98.2(O); Pulse Ox 96% on R/A; Weight 124.74 kg; kr3 Height 5 ft. 10 in. ; Pain 8/10; 11:01 BP 158 / 90; Pulse 72; Resp 17; Pulse Ox 97% on R/A; kr3 12:00 BP 149 / 85; Pulse 56; Resp 18; Pulse Ox 98% on R/A; kr3 13:01 BP 152 / 92; Pulse 57; Resp 18; Pulse Ox 98% on R/A; kr3 09:32 Body Mass Index 39.46 (124.74 kg, 177.8 cm) kr3 09:32 Pain Scale: Adult kr3 ED Course: 09:14 Patient arrived in ED. mr 09:15 Walt Benjamin PA is PHCP. jmm 09:15 Geoff Moore MD is Attending Physician. jmm 09:32 Kendal Jimenez, RN is Primary Nurse. kr3 09:36 Triage completed. kr3 09:39 Arm band placed on right wrist. Patient placed in an exam room, on a stretcher. kr3 09:40 Bed in low position. Call light in reach. Side rails up X 1. kr3 10:05 Inserted saline lock: 20 gauge in right antecubital area, using aseptic technique. kr3 Blood collected. 10:26 Urinalysis w/ reflexes Sent. kr3 11:09 CT Chest For PE Angio In Process Unspecified. EDMS 13:01 No provider procedures requiring assistance completed. IV discontinued, intact, kr3 bleeding controlled, No redness/swelling at site. Pressure dressing applied. Administered Medications: 10:26 Drug: Lactated Ringers Solution IV 1000 ml Route: IV; Rate: 1000 bolus; Site: right kr3 antecubital; 13:02 Follow up: Response: No adverse reaction; IV Status: Completed infusion; IV Intake: kr3 1000ml 11:01 Drug: Ketorolac IVP 30 mg Route: IVP; Site: right antecubital; kr3 13:02 Follow up: Response: No adverse reaction kr3 Medication: 13:02 VIS not applicable for this client. kr3 Intake: 13:02 IV: 1000ml; Total: 1000ml. kr3 Outcome: 12:52 Discharge ordered by . [facility] 13:02 Discharged to home ambulatory. kr3 13:02 Condition: stable 13:02 Discharge instructions given to patient, Instructed on discharge instructions, follow up and referral plans. medication usage, Demonstrated understanding of instructions, follow-up care, medications, Prescriptions given X 2. 13:02 Patient left the ED. kr3 Signatures: Dispatcher [employer] EDMS Walt Benjamin PA PA jmm Rivera, Mary mr Kendal Jimenez, RN RN kr3
[2023-01-01 13:07] VITALS: TEMP 98.2
[2023-01-01 13:09] VITALS: O2SAT 98
[2023-01-01 13:10] VITALS: BP 152/92
== END 2023-01-01 13:02 | disposition home or self-care (01) ==
LOC: ER 09:09
DX: S29.012A Strain of muscle and tendon of back wall of thorax, initial encounter (principal); F17.210 Nicotine dependence, cigarettes, uncomplicated
CPT/HCPCS: 96361; 85025; 81001; 36415; 83690; 80053; 71275; 96374; 99284; Q9967; J7120